=== PATIENT | female | born 1955 | race Two or more races ===

== ENCOUNTER 2018-10-31 10:53 | Day surgery (SDC) | payer OTHER ==
[~2018-10-31] VITALS: Ht 157.5 cm; Wt 58.1 kg
[~2018-10-31 10:53] MED LIST: ACET500 PO; ACETAMINOPHEN500 MG PO; ASCO500 PO; CALCIT950 PO; CALCIUM + D3 E1 EACH PO; CEPH500 PO; CODACE30 PO; Calcarb 600 W-1 EACH PO; Estradiol0.5 MG PO; FERR325 PO; FURO20 PO; Ferrous Sulfat325 M2 PO; HYDACE5 PO; LISHYD1012 PO; LISI20 PO; LOVENOX; OMEP20ER PO; OMEPRAZOLE MAGN20 MG PO; Omeprazole20 M1 PO; POTA20PAC PO; POTCHL20ER PO; PRAVASTATIN SOD10 MG PO; SERT25 PO; TRAZ50 PO; WARF1 PO; WARF4; WARF4 PO; WARF5 PO; WARF6 PO; ZESTORETIC 20-121 EA PO
[2018-10-31] MEDS ORDERED: ENOX30I (12:00)
--- NOTE | 2018-10-31 13:43 | NUR ---
10/31/18 1343 Megan Ferguson NOTIFIED THAT PT.'S LAST DOSE OF LOVENOX WAS 10/30/18 AT 1800. TALKING WITH PT. AT THIS TIME. PER WILL CONTINUE WITH PROCEDURE.
--- NOTE | 2018-10-31 14:21 | NUR ---
10/31/18 1421 Megan Ferguson PT. SUCTIONED OFF & ON DURING PROCEDURE, ORALLY FOR SCANT AMT. CLEAR SECRETIONS. CHIN LIFT ALSO PERFORMED WHEN COUGHING.
--- NOTE | 2018-10-31 14:26 | NUR ---
10/31/18 1426 Megan Ferguson PT. INSTRUCTED PER DR. BAI TO CALL DR. CUMMINGS OFFICE ON LOVENOX DOSES. PER DR. BAI OK TO START COUMADIN TODAY.
== END 2018-10-31 14:31 | disposition home or self-care (01) ==
LOC: ORSCSDS 10:53
PROVIDERS: Internal Medicine Gastroenterology
PROC: 0DJ08ZZ Inspection of Upper Intestinal Tract, Via Natural or Artificial Opening Endoscopic (ICD-10-PCS; principal; 2018-10-31 13:00)
DX: K31.7 Polyp of stomach and duodenum (principal); K44.9 Diaphragmatic hernia without obstruction or gangrene; I10 Essential (primary) hypertension; Z87.891 Personal history of nicotine dependence; Z79.01 Long term (current) use of anticoagulants; Z79.899 Other long term (current) drug therapy
CPT/HCPCS: J2704; J7120

== ENCOUNTER 2019-04-22 10:58 | Emergency (ER) | payer OTHER ==
[~2019-04-22] VITALS: Ht 160 cm; Wt 59.0 kg
[~2019-04-22 10:58] MED LIST changes: +ENOX30I
[2019-04-22] MEDS ORDERED: Lasix20 MG PO (11:46)
[2019-04-22 11:49] LABS: BASOPHILS ABSOLUTE AUTO 0.02 K/mm3 (0.00-0.23); BASOPHILS PERCENT AUTO 0 % (0-2); EOSINOPHILS ABSOLUTE AUTO 0.09 K/mm3 (0.00-0.68); EOSINOPHILS PERCENT AUTO 1 % (0-6); Hematocrit 37.3 % (33.0-51.0); Hemoglobin 11.7 g/dL (11.5-16.0); IMMATURE GRAN ABSOLUTE AUTO 0.02 K/mm3 (0.00-0.10); IMMATURE GRAN PERCENT AUTO 0 % (0-1); LYMPHOCYTES ABSOLUTE AUTO 0.98 K/mm3 (0.84-5.20); LYMPHOCYTES PERCENT AUTO 15 % (21-46); MONOCYTES PERCENT AUTO 6 % (4-13); Mean Corpuscular HGB 28.1 pg (26.0-34.0); Mean Corpuscular HGB Conc 31.4 g/dL (31.5-36.5); Mean Corpuscular Volume 90 fL (80-100); Mean Platelet Volume 10.2 fL (9.1-12.4); NEUTROPHILS ABSOLUTE AUTO 5.08 K/mm3 (1.96-9.15); NEUTROPHILS PERCENT AUTO 77 % (41-73); Platelet Count 206 K/mm3 (150-400); RDW Coefficient Variation 14.8 % (11.7-14.2); RDW Standard Deviation 48.8 fL (35.1-46.3); Red Blood Cell Count 4.16 M/mm3 (3.80-5.20); White Blood Cell Count 6.59 K/mm3 (4.00-11.30)
[2019-04-22 12:03] LABS: Alanine Aminotransfer (ALT/SGP 23 U/L (12-78); Albumin, Blood 4.1 g/dL (3.4-5.0); Albumin/Globulin Ratio 1.2 (0.8-1.8); Alk Phos 84 U/L (50-136); Anion Gap 4 mmol/L (6-16); Aspartate Aminotrans (AST/SGOT 27 U/L (12-37); Bilirubin, Total 0.9 mg/dL (0.1-1.0); Blood Urea Nitrogen 32 mg/dL (8-24); Bun/Creatinine Ratio 34.3 (12.0-20.0); CO2, Blood 32 mmol/L (21-32); Chloride, Blood 105 mmol/L (98-108); Creatinine, Blood 0.93 mg/dL (0.40-1.00); Globulin, Blood 3.3 g/dL (2.2-4.0); Glomerular Filtration Rate >60 (60-); Glucose, Blood 85 mg/dL (70-99); International Normalized Ratio 3.74; Potassium, Blood 3.7 mmol/L (3.5-5.5); Prothrombin Time Results 35.2 Sec (9.7-11.5); Sodium, Blood 141 mmol/L (136-145); Total Protein, Blood 7.4 g/dL (6.4-8.2); Troponin I <0.015 ng/mL (0.000-0.040)
== END 2019-04-22 13:45 | disposition home or self-care (01) ==
LOC: ER 10:58
PROVIDERS: Emergency Medicine
DX: F41.9 Anxiety disorder, unspecified (principal); F43.9 Reaction to severe stress, unspecified; R07.89 Other chest pain; I10 Essential (primary) hypertension; Z79.899 Other long term (current) drug therapy; Z79.01 Long term (current) use of anticoagulants
CPT/HCPCS: 36415; 71046; 80053; 83880; 84484; 85025; 85610; 93005; 93010; 96374; 99285-25; J2060

== ENCOUNTER → 2019-11-13 | Outpatient (CLI) | payer OTHER ==
[~2019-11-13] MED LIST changes: +Lasix20 MG PO
[2019-11-13 19:20] LABS: International Normalized Ratio 2.74; Prothrombin Time Results 27.7 Sec (9.7-11.5)
== END | disposition home or self-care (01) ==
LOC: LAB EV 15:34 → LAB SHORT 15:34
PROVIDERS: Physician Assistant
DX: I35.9 Nonrheumatic aortic valve disorder, unspecified (principal)
CPT/HCPCS: 36415; 85610

== ENCOUNTER 2020-03-11 09:29 | Day surgery (SDC) | payer OTHER ==
[~2020-03-11] VITALS: Ht 154.9 cm; Wt 62.3 kg
[~2020-03-11 09:29] MED LIST changes: +Coumadin2 MG; -WARF6 PO
--- NOTE | 2020-03-11 15:00 | NUR ---
ALL AIR REMOVED FROM THE TR BAND. BAND REMAINS IN PLACE. NO BLEEDING NOTED. DAUGHTER AT THE BEDSIDE. EXTENSIVE TEACHING DONE WITH PATIENT AND FAMILY REGARDING TODAYS TEST RESULTS AND FINDINGS AND THE PLAN OF CARE MOVING FORWARD.
--- NOTE | 2020-03-11 15:20 | NUR ---
1520 PATIENT UP AND DRESSED WITH ASSISTANCE FROM DAUGHTER. VVS. NO BLEEDING NOTED FROM THE TR BAND. PATIENT DENIES DIZZINESS OR PAIN. REVIEWED ALL DISCHARGE INSTRUCTIONS INCLUDING RESUMING WARFARIN PO ON HOME SCHEDULE. PATIENT AGREES AND WILL FOLLOW UP WITH DR. LOPEZ ON @ 1300.
--- NOTE | 2020-03-11 15:38 | NUR ---
1530 PIV REMOVED AND CATHETER TIP INTACT. PRESSURE DRESSING APPLIED. TR BAND REMOVED AND SITE CLEANED OF DRIED BLOOD. CLOTH DOT PLACED AND REPLACED THE WHITE ARM BOARD TO ENCOURAGE PATIENT NOT TO USE THE RIGHT WRIST FOR THE NEXT 48 HOURS. DISCHARGE INSTRUCTIONS AND ALL BELONGINGS RETAINED BY PATIENT. PATIENT AMBULATORY WITH DAUGHTER TO DISCHARGE HOME.
== END 2020-03-11 15:15 | disposition home or self-care (01) ==
LOC: MHTC 09:29
PROC: 4A023N7 Measurement of Cardiac Sampling and Pressure, Left Heart, Percutaneous Approach (ICD-10-PCS; principal; 2020-03-11)
PROC: B201YZZ Plain Radiography of Multiple Coronary Arteries using Other Contrast (ICD-10-PCS; principal; 2020-03-11)
DX: I08.1 Rheumatic disorders of both mitral and tricuspid valves (principal); I25.10 Atherosclerotic heart disease of native coronary artery without angina pectoris; I11.9 Hypertensive heart disease without heart failure; D64.9 Anemia, unspecified; I47.1 Supraventricular tachycardia; I47.2 Ventricular tachycardia; E78.5 Hyperlipidemia, unspecified; I42.9 Cardiomyopathy, unspecified; Z95.2 Presence of prosthetic heart valve; Z79.899 Other long term (current) drug therapy; Z87.891 Personal history of nicotine dependence; Z88.6 Allergy status to analgesic agent
CPT/HCPCS: 93005; 93010; 93456; 99152; 99153; A9270; C1769; C1894; J1644; J2250; J3010; J7030; J7050; Q9967

== ENCOUNTER → 2020-05-24 | Outpatient (CLI) | payer OTHER | END | disposition home or self-care (01) | LOC: LAB 13:16 → LAB SHORT 13:16 | DX: Z01.812 Encounter for preprocedural laboratory examination (principal); Z20.828 Contact with and (suspected) exposure to other viral communicable diseases | CPT/HCPCS: U0003 ==

== ENCOUNTER 2020-10-13 10:36 | Emergency (ER) | payer MEDICARE, OTHER ==
[~2020-10-13] VITALS: Ht 167.6 cm; Wt 59.4 kg
[~2020-10-13 10:36] MED LIST changes: -LISI20 PO; +LISI5 PO
[2020-10-13 11:24] LABS: BASOPHILS ABSOLUTE AUTO 0.06 K/mm3 (0.00-0.23); BASOPHILS PERCENT AUTO 1 % (0-2); EOSINOPHILS PERCENT AUTO 1 % (0-6); Hematocrit 34.7 % (33.0-51.0); Hemoglobin 10.1 g/dL (11.5-16.0); IMMATURE GRAN ABSOLUTE AUTO 0.03 K/mm3 (0.00-0.10); IMMATURE GRAN PERCENT AUTO 0 % (0-1); LYMPHOCYTES ABSOLUTE AUTO 0.78 K/mm3 (0.84-5.20); LYMPHOCYTES PERCENT AUTO 9 % (21-46); MONOCYTES ABSOLUTE AUTO 0.73 K/mm3 (0.16-1.47); MONOCYTES PERCENT AUTO 9 % (4-13); Mean Corpuscular HGB 20.9 pg (26.0-34.0); Mean Corpuscular HGB Conc 29.1 g/dL (31.5-36.5); Mean Corpuscular Volume 72 fL (80-100); NEUTROPHILS ABSOLUTE AUTO 6.64 K/mm3 (1.96-9.15); NEUTROPHILS PERCENT AUTO 80 % (41-73); Platelet Count 174 K/mm3 (150-400); RDW Coefficient Variation 19.3 % (11.7-14.2); Red Blood Cell Count 4.84 M/mm3 (3.80-5.20); White Blood Cell Count 8.34 K/mm3 (4.00-11.30)
[2020-10-13] MEDS ORDERED: ASPI81CH PO (11:28)
[2020-10-13] MEDS ORDERED: TORSE20 PO (11:29)
[2020-10-13] MEDS ORDERED: Norco 5-325 Ta1 EACH PO (11:30)
[2020-10-13] MEDS ORDERED: METO50ER PO (11:31)
[2020-10-13 11:40] LABS: Albumin, Blood 3.5 g/dL (3.4-5.0); Albumin/Globulin Ratio 1.1 (0.8-1.8); Bun/Creatinine Ratio 20.6 (12.0-20.0); Calcium, Blood 8.7 mg/dL (8.5-10.1); Creatinine, Blood 1.07 mg/dL (0.40-1.00); Globulin, Blood 3.2 g/dL (2.2-4.0); Potassium, Blood 3.5 mmol/L (3.5-5.5); Total Protein, Blood 6.7 g/dL (6.4-8.2); Troponin I 0.019 ng/mL (0.000-0.040)
== END 2020-10-13 14:08 | disposition home or self-care (01) ==
LOC: ER 10:36
PROVIDERS: Emergency Medicine
DX: R20.2 Paresthesia of skin (principal); D53.9 Nutritional anemia, unspecified; I10 Essential (primary) hypertension; Z95.1 Presence of aortocoronary bypass graft; Z79.82 Long term (current) use of aspirin; Z88.6 Allergy status to analgesic agent; Z79.01 Long term (current) use of anticoagulants; Z79.899 Other long term (current) drug therapy; Z79.3 Long term (current) use of hormonal contraceptives
CPT/HCPCS: 36415; 70450; 80053; 84484; 85025; 93005; 93010; 99284-25

== ENCOUNTER 2021-07-14 12:15 | Inpatient (IN) | payer MEDICARE, OTHER ==
[~2021-07-14] VITALS: Ht 157.5 cm; Wt 48.3 kg
[~2021-07-14 12:15] MED LIST changes: +ASPI81CH PO; -Coumadin2 MG; +Coumadin2 MG PO; +METO50ER PO; +Norco 5-325 Ta1 EACH PO; +TORSE20 PO
[2021-07-14 12:51] LABS: BASOPHILS ABSOLUTE AUTO 0.03 K/mm3 (0.00-0.23); BASOPHILS PERCENT AUTO 0 % (0-2); EOSINOPHILS ABSOLUTE AUTO 0.12 K/mm3 (0.00-0.68); EOSINOPHILS PERCENT AUTO 2 % (0-6); IMMATURE GRAN ABSOLUTE AUTO 0.02 K/mm3 (0.00-0.10); IMMATURE GRAN PERCENT AUTO 0 % (0-1); LYMPHOCYTES ABSOLUTE AUTO 0.96 K/mm3 (0.84-5.20); LYMPHOCYTES PERCENT AUTO 14 % (21-46); MONOCYTES PERCENT AUTO 7 % (4-13); Mean Corpuscular HGB 27.8 pg (26.0-34.0); Mean Corpuscular Volume 87 fL (80-100); Mean Platelet Volume 11.8 fL (9.1-12.4); NEUTROPHILS ABSOLUTE AUTO 5.24 K/mm3 (1.96-9.15); NEUTROPHILS PERCENT AUTO 76 % (41-73); Platelet Count 80 K/mm3 (150-400); RDW Coefficient Variation 16.2 % (11.7-14.2); RDW Standard Deviation 50.7 fL (35.1-46.3); Red Blood Cell Count 5.76 M/mm3 (3.80-5.20); White Blood Cell Count 6.87 K/mm3 (4.00-11.30)
[2021-07-14 13:14] LABS: Magnesium, Blood 2.6 mg/dL (1.6-2.4)
[2021-07-14 13:15] LABS: Source, Urine Clean Catch
[2021-07-14 13:21] LABS: Albumin, Blood 4.5 g/dL (3.4-5.0); Bilirubin, Total 1.8 mg/dL (0.1-1.0); Bun/Creatinine Ratio 37.5 (12.0-20.0); Calcium, Blood 10.1 mg/dL (8.5-10.1); Creatinine, Blood 2.96 mg/dL (0.40-1.00); Globulin, Blood 4.5 g/dL (2.2-4.0); Phosphorus, Blood 4.8 mg/dL (2.5-4.9); Potassium, Blood 6.6 mmol/L (3.5-5.5)
[2021-07-14 13:30] LABS: Appearance, Urine Clear (Clear); Bilirubin, Urine Neg (Neg); Blood, Urine Neg (Neg); Glucose Qualitative, Urine Neg (Neg); Ketones, Urine Neg (Neg); Leukocyte Esterase, Urine Neg (Neg); Nitrite, Urine Neg (Neg); Protein, Urine Neg (Neg); Urobilinogen, Urine NORM (Normal)
[2021-07-14 13:49] LABS: Color, Urine Pale Yellow (P-Yellow)
[2021-07-14 14:45] LABS: Influenza A, PCR NEGATIVE (NEGATIVE); Influenza B, PCR NEGATIVE (NEGATIVE); Resp Syncytial Virus, PCR NEGATIVE (NEGATIVE); SARS-Cov-2 (COVID-19) PCR, MMC NEGATIVE (NEGATIVE)
[2021-07-14] MEDS ORDERED: FEROSUL325 M1 PO (15:10)
[2021-07-14] MEDS ORDERED: Norco 5-325 MG PO (15:11)
[2021-07-14] MEDS ORDERED: ZESTRIL40 M1 PO (15:13)
[2021-07-14] MEDS ORDERED: METO50ER PO (15:14)
[2021-07-14] MEDS ORDERED: OMEP20ER PO (15:15)
[2021-07-14] MEDS ORDERED: K-Dur20 MEQ PO (15:16)
[2021-07-14] MEDS ORDERED: SERT25 PO (15:17)
[2021-07-14] MEDS ORDERED: ALDACTONE25 MG PO (15:18)
[2021-07-14] MEDS ORDERED: TORS10 PO (15:19)
[2021-07-14] MEDS ORDERED: TRAZ50 PO (15:21)
[2021-07-14] MEDS ORDERED: Coumadin1 MG PO (15:22)
[2021-07-14 15:28] LABS: Albumin, Blood 4.1 g/dL (3.4-5.0); Anion Gap 8 mmol/L (6-16); Blood Urea Nitrogen 101 mg/dL (8-24); Bun/Creatinine Ratio 37.5 (12.0-20.0); CO2, Blood 20 mmol/L (21-32); Chloride, Blood 110 mmol/L (98-108); Creatinine, Blood 2.69 mg/dL (0.40-1.00); Glomerular Filtration Rate 18 (60-); Glucose, Blood 42 mg/dL (70-99); Potassium, Blood 5.5 mmol/L (3.5-5.5); Sodium, Blood 138 mmol/L (136-145)
[2021-07-14 17:12] LABS: Prothrombin Time Results 72.3 Sec (9.7-11.5)
[2021-07-14 17:16] LABS: International Normalized Ratio 7.88
[2021-07-14] MEDS ORDERED: OLME20 PO (20:51)
[2021-07-14 21:00] LABS: Albumin, Blood 3.9 g/dL (3.4-5.0); Anion Gap 10 mmol/L (6-16); Blood Urea Nitrogen 94 mg/dL (8-24); CO2, Blood 22 mmol/L (21-32); Calcium, Blood 9.5 mg/dL (8.5-10.1); Chloride, Blood 104 mmol/L (98-108); Creatinine, Blood 2.41 mg/dL (0.40-1.00); Glomerular Filtration Rate 20 (60-); Glucose, Blood 295 mg/dL (70-99); Phosphorus, Blood 3.9 mg/dL (2.5-4.9); Potassium, Blood 4.9 mmol/L (3.5-5.5); Sodium, Blood 136 mmol/L (136-145)
[2021-07-15 04:11] LABS: BASOPHILS ABSOLUTE AUTO 0.02 K/mm3 (0.00-0.23); BASOPHILS PERCENT AUTO 0 % (0-2); EOSINOPHILS ABSOLUTE AUTO 0.11 K/mm3 (0.00-0.68); EOSINOPHILS PERCENT AUTO 2 % (0-6); Hematocrit 43.4 % (33.0-51.0); Hemoglobin 13.9 g/dL (11.5-16.0); IMMATURE GRAN ABSOLUTE AUTO 0.01 K/mm3 (0.00-0.10); IMMATURE GRAN PERCENT AUTO 0 % (0-1); LYMPHOCYTES ABSOLUTE AUTO 0.88 K/mm3 (0.84-5.20); LYMPHOCYTES PERCENT AUTO 15 % (21-46); MONOCYTES ABSOLUTE AUTO 0.53 K/mm3 (0.16-1.47); MONOCYTES PERCENT AUTO 9 % (4-13); Mean Corpuscular HGB 27.3 pg (26.0-34.0); Mean Corpuscular Volume 85 fL (80-100); Mean Platelet Volume 12.1 fL (9.1-12.4); NEUTROPHILS PERCENT AUTO 74 % (41-73); Platelet Count 66 K/mm3 (150-400); RDW Standard Deviation 50.1 fL (35.1-46.3); Red Blood Cell Count 5.09 M/mm3 (3.80-5.20); White Blood Cell Count 5.85 K/mm3 (4.00-11.30)
[2021-07-15 04:30] LABS: Prothrombin Time Results 72.5 Sec (9.7-11.5)
[2021-07-15 04:34] LABS: International Normalized Ratio 7.9
[2021-07-15 04:42] LABS: Albumin, Blood 3.7 g/dL (3.4-5.0); Albumin/Globulin Ratio 1.1 (0.8-1.8); Bilirubin, Total 1.7 mg/dL (0.1-1.0); Bun/Creatinine Ratio 38.6 (12.0-20.0); Calcium, Blood 9.4 mg/dL (8.5-10.1); Creatinine, Blood 2.1 mg/dL (0.40-1.00); Globulin, Blood 3.4 g/dL (2.2-4.0); Potassium, Blood 5.7 mmol/L (3.5-5.5); Total Protein, Blood 7.1 g/dL (6.4-8.2)
--- NOTE | 2021-07-15 06:39 | NUR ---
SHIFT SUMMARY PT A&OX4, BUE TREMORS AT BASELINE FOR X1 MONTH. SP02>90% ON RA. TELEMETRY READS NSR 1ST DEGREE HB HR 60'S. PT USED SBA AND FWW TO BATHROOM TO VOID, NO BM THIS SHIFT. PT C/O OF MIGRAINE HEADACHE, NORCO GIVEN PER EMAR. HEATING PAD PROVIDED. PT DAUGHTER ACCOMPANIED HER TO ROOM UPON ADMIT. TALKED TO PT ABOUT ADVANCED CARE PLANNING. PT AND DAUGHTER HOPING PALLIATIVE CAN MEET THEM TODAY DURING VISITING HOURS TO DISCUSS MAKING ONE. FLUIDS INFUSING PER EMAR. CALL LIGHT IN REACH.
--- NOTE | 2021-07-15 11:49 | NUR ---
Pt is A&O, pleasant with cares. VSS on RA. BP has been better this AM, PO metoprolol given per orders. Pt was nauseous at start of shift from migraine, prn zofran, norco and zoloft given. Pt reported she takes zoloft to help prevent migraines. Headache relieved after AM meds. Pt up to bathroom, still no BM at this time. IV fluids running the second bag of NS ordered at 50ml/hr.
--- NOTE | 2021-07-15 13:19 | NUR ---
Patient is lying in bed and alert. Patient talks about her recent surgery and the medical issues that she has. She tells me that her grandkids ages 9 and 12 are her biggest inspiration and motive for her to recover well. She also shares about her [employer] anita and how this is a strength to her and that her prayers are very comforting to her. I encourage helpful attitudes and practices and provide therapeutic listening, gentle business and financial counsel and prayer. Patient responds well and shows signs of an elevated mood. I will continue to remain available to patient and family.
--- NOTE | 2021-07-15 13:56 | NUR ---
Pt reports 5/10 headache, this is the second today. No pain meds available. Zofran given for nausea and vomiting. LVM for to get more pain meds and notify him that this is the second migraine today.
--- NOTE | 2021-07-15 14:12 | NUR ---
echocardiogram complete
[2021-07-15 14:37] LABS: Albumin, Blood 3.7 g/dL (3.4-5.0); Anion Gap 13 mmol/L (6-16); Blood Urea Nitrogen 57 mg/dL (8-24); Bun/Creatinine Ratio 33.3 (12.0-20.0); CO2, Blood 17 mmol/L (21-32); Calcium, Blood 9.1 mg/dL (8.5-10.1); Chloride, Blood 112 mmol/L (98-108); Creatinine, Blood 1.71 mg/dL (0.40-1.00); Glomerular Filtration Rate 30 (60-); Glucose, Blood 106 mg/dL (70-99); Phosphorus, Blood 4.3 mg/dL (2.5-4.9); Potassium, Blood 5.3 mmol/L (3.5-5.5); Sodium, Blood 142 mmol/L (136-145)
--- NOTE | 2021-07-15 14:51 | NUR ---
Radiologist called reporting pt does have new subdermal hemorrage. Dr. oJsé was notifed via telephone and will be adding in new orders. Pt was oriented x4 prior to head CT. I have given her morphine 2mg and phenergan for nausea and headache which has made her a bit drowsy. Pupils were equal and reactive on assessment. Daughter is at bedside and pt is resting comfortably. VSS on RA. Cardiac and continous pulse ox on.
--- NOTE | 2021-07-15 15:56 | NUR ---
Pt is oriented x2 at this time and pretty drowsy, but will wake up to voice. Pt was given phenergan and morphine for pain and nausea, so hard to tell if that is causing some decreased mentation. notifed. VSS on RA.
--- NOTE | 2021-07-15 16:21 | NUR ---
I attempted to visit this patient in her room earlier and nurse was taking vitals as well as RT waiting to assess the patient
[2021-07-15 16:40] LABS: International Normalized Ratio 1.53; Prothrombin Time Results 15.6 Sec (9.7-11.5)
--- NOTE | 2021-07-15 18:36 | NUR ---
Shift summary: Pt was alert and orientedx4 at start of shift, she is now orientedx3. In AM she complained of headache/migraine with nausea and vomiting, prn norco, zoloft, and zofran given with good relief. Around about 1330 pt reported sudden onset severe headache with nausea and vomiting again, MD notifed and prn zofran given. STAT CT head ordered due to bleeding risk with INR of 7.9 this AM. IV mophine and prn phenergan given since the 2nd dose of zofran did not help with nausea. Pt was pretty drowsy after the morphine and phenergan and was only oriented x 2 for a short time and was less alert at that time. By the end of the shift she was more alert and less slurring of words. Pupils remain equal and reactive. Pt did get up to BSC with min assist to void, pt was a bit wobbly when up. No BM today. VSS on RA. Tele: sinus rythmn w/ 1st degree 60s. Kcentra and Vitamin K given shortly after CT results showing new subdural hemorrhage. K: 5.7 this AM and Lokelma given per orders. NS was running at 50ml/hr until new order of 1/2NS running at 100ml/hr.
[2021-07-16 04:17] LABS: BASOPHILS ABSOLUTE AUTO 0.02 K/mm3 (0.00-0.23); BASOPHILS PERCENT AUTO 0 % (0-2); EOSINOPHILS ABSOLUTE AUTO 0.12 K/mm3 (0.00-0.68); EOSINOPHILS PERCENT AUTO 2 % (0-6); Hematocrit 42.2 % (33.0-51.0); Hemoglobin 13.4 g/dL (11.5-16.0); IMMATURE GRAN ABSOLUTE AUTO 0.02 K/mm3 (0.00-0.10); IMMATURE GRAN PERCENT AUTO 0 % (0-1); LYMPHOCYTES ABSOLUTE AUTO 0.93 K/mm3 (0.84-5.20); LYMPHOCYTES PERCENT AUTO 16 % (21-46); MONOCYTES ABSOLUTE AUTO 0.58 K/mm3 (0.16-1.47); MONOCYTES PERCENT AUTO 10 % (4-13); Mean Corpuscular HGB 27.5 pg (26.0-34.0); Mean Corpuscular HGB Conc 31.8 g/dL (31.5-36.5); Mean Corpuscular Volume 87 fL (80-100); Mean Platelet Volume 10.9 fL (9.1-12.4); NEUTROPHILS PERCENT AUTO 72 % (41-73); Platelet Count 70 K/mm3 (150-400); RDW Coefficient Variation 16.1 % (11.7-14.2); RDW Standard Deviation 51.2 fL (35.1-46.3); Red Blood Cell Count 4.88 M/mm3 (3.80-5.20); White Blood Cell Count 5.97 K/mm3 (4.00-11.30)
[2021-07-16 04:19] LABS: International Normalized Ratio 1.21
[2021-07-16 04:25] LABS: Albumin, Blood 3.3 g/dL (3.4-5.0); Bilirubin, Total 3.9 mg/dL (0.1-1.0); Bun/Creatinine Ratio 26.6 (12.0-20.0); Calcium, Blood 9.6 mg/dL (8.5-10.1); Creatinine, Blood 1.43 mg/dL (0.40-1.00); Globulin, Blood 3.4 g/dL (2.2-4.0); Potassium, Blood 4.4 mmol/L (3.5-5.5); Total Protein, Blood 6.7 g/dL (6.4-8.2)
--- NOTE | 2021-07-16 05:44 | NUR ---
SHIFT SUMMARY PT A&OX4. Q2H NEURO CHECKS REMAINED UNCHANGED. PT DROWSY ALL NIGHT, WEAKNESS NOTED. SP02>90% ON RA. TELEMETRY READ NSR, HR 60'S. PT UP TO BSC TO VOID, WITH FWW AND HEAVY 1 PERSON, WEAK ON FEET. NO BM THIS SHIFT. PT DENIED NAUSEA. C/O OF SLIGHT HEADACHE BUT DID NOT WANT MEDICATION. FLUIDS INFUSED PER EMAR. PT SLEPT MOST OF NIGHT BUT AROUSABLE TO SOUND. CALL LIGHT IN REACH.
[2021-07-16 06:39] LABS: Prothrombin Time Results 12.5 Sec (9.7-11.5)
--- NOTE | 2021-07-16 13:00 | NUR ---
PT'S NEURO ASSESSMENT HAS REMAIN UNCHANGED SINCE LAST ASSESSMENT, REPORTS GONZALEZ OF 4/10 WHICH SHE IS TREATED WITH NORCO FOR PAIN.
--- NOTE | 2021-07-16 14:30 | NUR ---
Patient is lying in bed and alert. Patient immediately tells me that she is having horrible head pain and numbness down her arm. She explains that she was recently given "pain meds" and she waiting for them to kick in. She talks about how she focuses of her grandkids, her anita and anything that can distract her thinking off of the pain. I provide additional thoughts for distraction, discuss mindfulness practices and provide prayer. Patient responds well and states that she appreciate the visit and expects the pain to subside very soon. I will continue to remain available to patient and family.
--- NOTE | 2021-07-16 18:07 | NUR ---
PT A/O X3, NEUROS HAVE REMAINED UNCHAGED T/O THE DAY. PT DID REPORT GONZALEZ T/O THE DAY, AT ONE POINT DID REPORT NUMBNESS TO OCCIPUT AND FOREHEAD AND BRIEF VISUAL DISTURBANCE WHICH HAS RESOLVED. PT TREATED FOR PAIN PER EMAR. COUMADIN RESTARTED THIS EVENING. PT WITH ORDER TO ADVANCE DIET TOLERATED BUT HAS ASKED TO REMAIN ON CLEAR LIQUIDS, DIET WAS NOT CHANGED. VSS. DENIES CP AND SOB
[2021-07-17 03:46] LABS: BASOPHILS ABSOLUTE AUTO 0.02 K/mm3 (0.00-0.23); BASOPHILS PERCENT AUTO 0 % (0-2); EOSINOPHILS ABSOLUTE AUTO 0.18 K/mm3 (0.00-0.68); EOSINOPHILS PERCENT AUTO 3 % (0-6); Hematocrit 40.1 % (33.0-51.0); Hemoglobin 12.8 g/dL (11.5-16.0); IMMATURE GRAN ABSOLUTE AUTO 0.01 K/mm3 (0.00-0.10); IMMATURE GRAN PERCENT AUTO 0 % (0-1); LYMPHOCYTES ABSOLUTE AUTO 1.07 K/mm3 (0.84-5.20); LYMPHOCYTES PERCENT AUTO 20 % (21-46); MONOCYTES ABSOLUTE AUTO 0.57 K/mm3 (0.16-1.47); MONOCYTES PERCENT AUTO 10 % (4-13); Mean Corpuscular HGB 27.7 pg (26.0-34.0); Mean Corpuscular HGB Conc 31.9 g/dL (31.5-36.5); Mean Corpuscular Volume 87 fL (80-100); Mean Platelet Volume 10.8 fL (9.1-12.4); NEUTROPHILS ABSOLUTE AUTO 3.64 K/mm3 (1.96-9.15); NEUTROPHILS PERCENT AUTO 66 % (41-73); Platelet Count 66 K/mm3 (150-400); RDW Coefficient Variation 15.6 % (11.7-14.2); RDW Standard Deviation 49.9 fL (35.1-46.3); Red Blood Cell Count 4.62 M/mm3 (3.80-5.20); White Blood Cell Count 5.49 K/mm3 (4.00-11.30)
--- NOTE | 2021-07-17 05:30 | NUR ---
SHIFT SUMMARY PATIENT ALERT AND ORIENTED X3. NEURO CHECKS HAVE REMAINED UNCHANGED T/O SHIFT. PATIENT CONTINUES TO REPORT SOME NUMBNESS IN OCCIPUT AREA BUT STATES THAT IT HAS NOT CHANGED. DENIES ANY VISUAL DISTURBANCES. COMPLAINED OF A HEADACHE ONCE, MEDICATED PER EMAR. VSS. DENIES CHEST PAIN OR SHORTNESS OF BREATH. AMBULATES WITH MINIMAL ASSIST INTO BATHROOM. NO OTHER SIGNIFICANT CHANGES NOTED. WILL REPORT TO DAY SHIFT RN.
[2021-07-17 05:55] LABS: Albumin, Blood 2.8 g/dL (3.4-5.0); Anion Gap 4 mmol/L (6-16); Blood Urea Nitrogen 19 mg/dL (8-24); Bun/Creatinine Ratio 18.3 (12.0-20.0); CO2, Blood 25 mmol/L (21-32); Calcium, Blood 8.8 mg/dL (8.5-10.1); Chloride, Blood 111 mmol/L (98-108); Creatinine, Blood 1.04 mg/dL (0.40-1.00); Glomerular Filtration Rate 53 (60-); Glucose, Blood 88 mg/dL (70-99); Magnesium, Blood 1.8 mg/dL (1.6-2.4); Phosphorus, Blood 2.7 mg/dL (2.5-4.9); Potassium, Blood 4.1 mmol/L (3.5-5.5); Sodium, Blood 140 mmol/L (136-145)
[2021-07-17 07:27] LABS: International Normalized Ratio 1.13; Prothrombin Time Results 11.8 Sec (9.7-11.5)
[2021-07-17 10:24] LABS: Stool Occult Blood Guaiac 1 Pos (Neg)
--- NOTE | 2021-07-17 18:21 | NUR ---
PT WITHOUT NEURO CHANGES T/O THE DAY. STS THAT GONZALEZ HAS RESOLVED. DENIES CP AND SOB. PT HAD BM TODAY BUT FLUSHED IT BEFORE A REPEAT SAMPLE COULD BE OBTAINED. PT REMAINS INDEPENDANT IN ROOM TO BATHROOM. VSS. NADN. THERE ARE NO OTHER ACUTE CHANGES TO DISCUSS THIS SHIFT.
[2021-07-18 03:51] LABS: International Normalized Ratio 1.14; Prothrombin Time Results 11.9 Sec (9.7-11.5)
--- NOTE | 2021-07-18 05:31 | NUR ---
SHIFT SUMMARY PATIENT ALERT AND ORIENTED X3. VSS. PATIENT REMAINS ON RA WITH O2 SATURATION ABOVE 90%. ABLE TO MAKE NEEDS KNOWN TO STAFF AND USES CALL LIGHT APPROPRIATELY. PATIENT ABLE TO HAVE BM OVER NIGHT, STOOL SAMPLE SENT TO LAB. MEDICATED PER EMAR FOR PAIN. NO SIGNIFICANT CHANGES SINCE ADMISSION NOTE. WILL REPORT TO DAY SHIFT RN.
--- NOTE | 2021-07-18 05:36 | NUR ---
SHIFT SUMMARY PATIENT ALERT AND ORIENTED. VSS. PATIENT REMAINS ON RA WITH O2 SATURATION ABOVE 92%. NO NEURO CHANGES NOTED DURING THIS SHIFT. MEDICATED PER EMAR FOR HEADACHE. PATIENT ABLE TO MAKE NEEDS KNOWN AND USES CALL LIGHT APPROPRIATELY. AMBULATES INTO BATHROOM STANDBY ASSIST. NO OTHER SIGNIFICANT CHANGES TO PATIENT THIS SHIFT. WILL REPORT TO DAY SHIFT RN.
[2021-07-18 08:34] LABS: BASOPHILS ABSOLUTE AUTO 0.02 K/mm3 (0.00-0.23); BASOPHILS PERCENT AUTO 0 % (0-2); EOSINOPHILS ABSOLUTE AUTO 0.16 K/mm3 (0.00-0.68); EOSINOPHILS PERCENT AUTO 3 % (0-6); Hematocrit 41.7 % (33.0-51.0); Hemoglobin 13.1 g/dL (11.5-16.0); IMMATURE GRAN ABSOLUTE AUTO 0.01 K/mm3 (0.00-0.10); IMMATURE GRAN PERCENT AUTO 0 % (0-1); LYMPHOCYTES ABSOLUTE AUTO 0.72 K/mm3 (0.84-5.20); LYMPHOCYTES PERCENT AUTO 14 % (21-46); MONOCYTES ABSOLUTE AUTO 0.45 K/mm3 (0.16-1.47); MONOCYTES PERCENT AUTO 9 % (4-13); Mean Corpuscular HGB 27.8 pg (26.0-34.0); Mean Corpuscular HGB Conc 31.4 g/dL (31.5-36.5); Mean Corpuscular Volume 89 fL (80-100); Mean Platelet Volume 11.9 fL (9.1-12.4); NEUTROPHILS ABSOLUTE AUTO 3.78 K/mm3 (1.96-9.15); NEUTROPHILS PERCENT AUTO 74 % (41-73); Platelet Count 68 K/mm3 (150-400); RDW Coefficient Variation 15.1 % (11.7-14.2); RDW Standard Deviation 48.9 fL (35.1-46.3); Red Blood Cell Count 4.71 M/mm3 (3.80-5.20); White Blood Cell Count 5.14 K/mm3 (4.00-11.30)
[2021-07-18 09:02] LABS: Alanine Aminotransfer (ALT/SGP 25 U/L (12-78); Albumin, Blood 3.2 g/dL (3.4-5.0); Albumin/Globulin Ratio 1.1 (0.8-1.8); Alk Phos 142 U/L (50-136); Anion Gap 7 mmol/L (6-16); Aspartate Aminotrans (AST/SGOT 34 U/L (12-37); Bilirubin, Direct 0.8 mg/dL (0.0-0.3); Bilirubin, Indirect 2.4 mg/dL (0.1-0.7); Bilirubin, Total 3.2 mg/dL (0.1-1.0); Blood Urea Nitrogen 10 mg/dL (8-24); CO2, Blood 24 mmol/L (21-32); Calcium, Blood 8.8 mg/dL (8.5-10.1); Chloride, Blood 109 mmol/L (98-108); Creatinine, Blood 0.91 mg/dL (0.40-1.00); Glomerular Filtration Rate >60 (60-); Glucose, Blood 107 mg/dL (70-99); Phosphorus, Blood 2.7 mg/dL (2.5-4.9); Potassium, Blood 3.9 mmol/L (3.5-5.5); Sodium, Blood 140 mmol/L (136-145); Total Protein, Blood 6.2 g/dL (6.4-8.2)
[2021-07-18] MEDS ORDERED: OLME20 PO (12:17)
--- NOTE | 2021-07-18 13:57 | NUR ---
IVs REMOVED INTACT, PRESSURE DRESSED, NO ACTIVE BLEEDING FROM SITE. PT AND FAMILY EXPRESSED UNDERSTANDING OF DC TEACHING AND DENY FURTHER NEEDS
== END 2021-07-18 13:26 | disposition home or self-care (01) | DRG 682 ==
LOC: ER 12:15 → ERHOLD 14:38 → PCU 14:38
PROVIDERS: Emergency Medicine; Internal Medicine Endocrinology, Diabetes & Metabolism; Physician Assistant; ADMIT Family Medicine
DX: N17.9 Acute kidney failure, unspecified (principal); I62.00 Nontraumatic subdural hemorrhage, unspecified; E87.2 Acidosis; K21.9 Gastro-esophageal reflux disease without esophagitis; J44.9 Chronic obstructive pulmonary disease, unspecified; E03.9 Hypothyroidism, unspecified; Z79.01 Long term (current) use of anticoagulants; F32.A Depression, unspecified; Z20.822 Contact with and (suspected) exposure to COVID-19; R11.2 Nausea with vomiting, unspecified; R19.7 Diarrhea, unspecified; Z95.2 Presence of prosthetic heart valve; D50.9 Iron deficiency anemia, unspecified; E87.5 Hyperkalemia; G43.909 Migraine, unspecified, not intractable, without status migrainosus; Z88.6 Allergy status to analgesic agent; M81.0 Age-related osteoporosis without current pathological fracture; Z90.710 Acquired absence of both cervix and uterus; B18.2 Chronic viral hepatitis C; Z66 Do not resuscitate; Z79.899 Other long term (current) drug therapy; R94.5 Abnormal results of liver function studies; D69.6 Thrombocytopenia, unspecified; Z79.82 Long term (current) use of aspirin; Z95.1 Presence of aortocoronary bypass graft; E86.0 Dehydration; Z53.29 Procedure and treatment not carried out because of patient's decision for other reasons
CPT/HCPCS: 0241U; 36415; 36416; 70450; 80053; 80069; 81003; 82248; 82272; 82947; 83735; 83880; 84100; 85025; 85610; 87015; 87045; 87046; 87205; 87899; 93005; 93010; 93306; 94644; 96365; 96366; 96375; 96376; 99285-25; A9270; C9113; J0610; J1815; J2270; J2405; J2550; J3430; J7030; J7168

== ENCOUNTER → 2021-10-07 | Outpatient (CLI) | payer MEDICARE, OTHER ==
[~2021-10-07] MED LIST changes: +ALDACTONE25 MG PO; +Coumadin1 MG PO; +FEROSUL325 M1 PO; +K-Dur20 MEQ PO; +Norco 5-325 MG PO; +OLME20 PO; +TORS10 PO; +ZESTRIL40 M1 PO
[2021-10-07 14:23] LABS: Creatinine Urine 60.2 mg/dL (27.00-270.00); Protein, Urine Quantitative 8.6 mg/dL (0.0-11.9)
[2021-10-07 14:26] LABS: Microalbumin, Urine Quant. 7.87 mg/L (0.000-20.000)
== END | disposition home or self-care (01) ==
LOC: LAB SHORT 12:59
PROVIDERS: Internal Medicine Nephrology
DX: N18.30 Chronic kidney disease, stage 3 unspecified (principal); D63.1 Anemia in chronic kidney disease; E55.9 Vitamin D deficiency, unspecified; N25.81 Secondary hyperparathyroidism of renal origin; E78.00 Pure hypercholesterolemia, unspecified; R76.9 Abnormal immunological finding in serum, unspecified; R94.5 Abnormal results of liver function studies; R94.6 Abnormal results of thyroid function studies; D51.8 Other vitamin B12 deficiency anemias; D52.8 Other folate deficiency anemias; D50.9 Iron deficiency anemia, unspecified
CPT/HCPCS: 81050; 82043; 82570; 84156

== ENCOUNTER 2022-07-21 10:12 | Inpatient (IN) | payer OTHER ==
[~2022-07-21] VITALS: Ht 157.5 cm; Wt 53.7 kg
[~2022-07-21 10:12] MED LIST changes: -Coumadin2 MG PO; +ESTRADIOL0.5 MG PO; -Estradiol0.5 MG PO
[2022-07-21 11:03] LABS: BASOPHILS ABSOLUTE AUTO 0.02 K/mm3 (0.00-0.23); BASOPHILS PERCENT AUTO 0 % (0-2); EOSINOPHILS ABSOLUTE AUTO 0.12 K/mm3 (0.00-0.68); EOSINOPHILS PERCENT AUTO 2 % (0-6); Hematocrit 44.3 % (33.0-51.0); Hemoglobin 14.2 g/dL (11.5-16.0); IMMATURE GRAN ABSOLUTE AUTO 0.03 K/mm3 (0.00-0.10); IMMATURE GRAN PERCENT AUTO 1 % (0-1); LYMPHOCYTES ABSOLUTE AUTO 0.84 K/mm3 (0.84-5.20); LYMPHOCYTES PERCENT AUTO 13 % (21-46); MONOCYTES ABSOLUTE AUTO 0.44 K/mm3 (0.16-1.47); MONOCYTES PERCENT AUTO 7 % (4-13); Mean Corpuscular HGB Conc 32.1 g/dL (31.5-36.5); Mean Corpuscular Volume 87 fL (80-100); Mean Platelet Volume 12.5 fL (9.1-12.4); NEUTROPHILS ABSOLUTE AUTO 4.81 K/mm3 (1.96-9.15); NEUTROPHILS PERCENT AUTO 77 % (41-73); Platelet Count 110 K/mm3 (150-400); RDW Coefficient Variation 16.6 % (11.7-14.2); RDW Standard Deviation 52.7 fL (35.1-46.3); Red Blood Cell Count 5.07 M/mm3 (3.80-5.20); White Blood Cell Count 6.26 K/mm3 (4.00-11.30)
[2022-07-21 11:23] LABS: Albumin, Blood 4.5 g/dL (3.4-5.0); Bilirubin, Total 1.4 mg/dL (0.1-1.0); Bun/Creatinine Ratio 24.4 (12.0-20.0); Calcium, Blood 10.1 mg/dL (8.5-10.1); Creatinine, Blood 5.74 mg/dL (0.40-1.00); Globulin, Blood 4.5 g/dL (2.2-4.0)
[2022-07-21 11:24] LABS: Potassium, Blood 7.3 mmol/L (3.5-5.5)
[2022-07-21] MEDS ORDERED: GABA100 PO (12:49)
[2022-07-21] MEDS ORDERED: POTCHL20ER PO (12:53)
[2022-07-21] MEDS ORDERED: SPIR25 PO (12:55)
[2022-07-21] MEDS ORDERED: TORSE20 PO (13:05)
[2022-07-21 14:10] LABS: Calcium, Ionized (POC) 1.23 mmol/L (1.10-1.46); Chloride (POC) 101 mmol/L (98-108); Creatinine (POC) 5.6 mg/dL (0.6-1.0); Glucose (ISTAT POC) 117 mg/dL (70-99); Hemoglobin (POC) 13.6 g/dL (12.0-16.0); Sodium (POC) 136 mmol/L (135-148); Total CO2 (POC) 25 mmol/L (21-32)
[2022-07-21 15:07] LABS: Bun/Creatinine Ratio 26.4 (12.0-20.0); Calcium, Blood 9.9 mg/dL (8.5-10.1)
[2022-07-22 05:52] LABS: BASOPHILS ABSOLUTE AUTO 0.02 K/mm3 (0.00-0.23); BASOPHILS PERCENT AUTO 0 % (0-2); EOSINOPHILS ABSOLUTE AUTO 0.08 K/mm3 (0.00-0.68); EOSINOPHILS PERCENT AUTO 2 % (0-6); Hematocrit 36.5 % (33.0-51.0); Hemoglobin 12.1 g/dL (11.5-16.0); IMMATURE GRAN ABSOLUTE AUTO 0.01 K/mm3 (0.00-0.10); IMMATURE GRAN PERCENT AUTO 0 % (0-1); LYMPHOCYTES ABSOLUTE AUTO 1.02 K/mm3 (0.84-5.20); LYMPHOCYTES PERCENT AUTO 21 % (21-46); MONOCYTES ABSOLUTE AUTO 0.43 K/mm3 (0.16-1.47); MONOCYTES PERCENT AUTO 9 % (4-13); Mean Corpuscular HGB 28.3 pg (26.0-34.0); Mean Corpuscular HGB Conc 33.2 g/dL (31.5-36.5); Mean Corpuscular Volume 86 fL (80-100); Mean Platelet Volume 11.8 fL (9.1-12.4); NEUTROPHILS ABSOLUTE AUTO 3.31 K/mm3 (1.96-9.15); NEUTROPHILS PERCENT AUTO 68 % (41-73); Platelet Count 78 K/mm3 (150-400); RDW Coefficient Variation 16.3 % (11.7-14.2); RDW Standard Deviation 51.8 fL (35.1-46.3); Red Blood Cell Count 4.27 M/mm3 (3.80-5.20); White Blood Cell Count 4.87 K/mm3 (4.00-11.30)
[2022-07-22 06:01] LABS: Prothrombin Time Results 38.4 Sec (9.7-11.5)
[2022-07-22 06:16] LABS: Magnesium, Blood 2.4 mg/dL (1.6-2.4)
[2022-07-22 06:45] LABS: Albumin, Blood 3.5 g/dL (3.4-5.0); Albumin/Globulin Ratio 1.1 (0.8-1.8); Bilirubin, Total 1.5 mg/dL (0.1-1.0); Bun/Creatinine Ratio 27.3 (12.0-20.0); Calcium, Blood 8.9 mg/dL (8.5-10.1); Creatinine, Blood 4.72 mg/dL (0.40-1.00); Globulin, Blood 3.2 g/dL (2.2-4.0); Phosphorus, Blood 4.7 mg/dL (2.5-4.9); Potassium, Blood 6.6 mmol/L (3.5-5.5); Total Protein, Blood 6.7 g/dL (6.4-8.2)
--- NOTE | 2022-07-22 06:48 | NUR ---
GROCERY STORE BAGGER SUMMARY: A&Ox3-4. PLEASANT AND COOPERATIVE WITH CARE. CALLS APPROPRIATELY AND IS ABLE TO COMMUNICATE NEEDS EFFECTIVELY. DR PENA CONSULTED THIS EVENING AND ORDERED BLADDER SCAN WITH POST-VOID OUTPUT COMPARISON WELL FLUIDS AND WILL RETURN IN AM TO CHECK IN WITH HER. SCAN SHOWED ~260mL AND PT VOIED 300mL. PT DENIES C/O PAIN OR DISCOMFORT THIS EVENING AND HAS SLEPT THE MAJORITY OF SHIFT. CRITICAL VALUE OF 6.6 POTASSIUM RECEIVED FROM LAB @ 0645am. WILL DISCUSS WITH DR PENA WHEN HE CONSULTS. WILL REPORT TO ONCOMING RN.
--- NOTE | 2022-07-22 11:36 | NUR ---
CALLED DR PENA WITH LAB RESULTS- POTASSIUM 4.8 HE IS AWARE. BG HAVE BEEN TRENDING DOWN. RECIEVED AN ORDER TO DC BG CHECKS.
--- NOTE | 2022-07-22 16:49 | NUR ---
SHIFT SUMMARY- PT ALERT AND ORIENTED. FAMILY AT THE BEDSIDE. POTASSIUM WAS CRITICALLY HIGH THIS MORNING AT 6.6 DR PENA WAS NOTIFIED BY NIGHT RN AND MEDS WERE GIVEN. POTASSIUM DOWN TO 4.8 ON RECHECK. ON MORNING ASSESSMENT IT WAS NOTED THE PT HAD A LINE OF CLOTTED BLOOD IN THE BACK OF HER THROAT. PT HAD A COUGHING FIT AND COUGHED UP A BLOOD CLOT THE SIZE OF A DIME AND THE CLOTTED BLOOD WAS LESSENED, THE PT STATES SHE HAD A BAD NOSE BLEED WHEN SHE CAME IN TO THE ED. FAMILY SUPPORTS THIS CLAIM. WILL TALK TO DR PENA ABOUT THIS WHEN HE COMES IN TO SEE THE PT THIS EVENING, CALLED DR CEBALLOS HE IS AWARE OF THIS. VS STABLE. PT IS IN BED, CALL LIGHT IN REACH, SHE WALKED THE HALLS WITH THERAPY TODAY. PT PERSONAL 4 WHEELED WALKER IS IN THE ROOM. PT HAS BEEN UP INDEPENDENT TO THE BATHROOM TODAY. WILL CTM AND PASS ON TO NIGHT RN IN BEDSIDE REPORT.
--- NOTE | 2022-07-22 17:19 | NUR ---
DR PENA CAME TO SEE THE PT AND SPOKE TO THE DAUGHTER. PLAN IS TO CONTINUE GENTLE REHYDRATION. NO PLANS FOR DIALYSIS AT THIS TIME.
[2022-07-23 04:42] LABS: BASOPHILS ABSOLUTE AUTO 0.01 K/mm3 (0.00-0.23); BASOPHILS PERCENT AUTO 0 % (0-2); EOSINOPHILS ABSOLUTE AUTO 0.11 K/mm3 (0.00-0.68); EOSINOPHILS PERCENT AUTO 3 % (0-6); Hematocrit 36.3 % (33.0-51.0); Hemoglobin 12.1 g/dL (11.5-16.0); IMMATURE GRAN ABSOLUTE AUTO 0.01 K/mm3 (0.00-0.10); IMMATURE GRAN PERCENT AUTO 0 % (0-1); LYMPHOCYTES ABSOLUTE AUTO 0.81 K/mm3 (0.84-5.20); LYMPHOCYTES PERCENT AUTO 20 % (21-46); MONOCYTES ABSOLUTE AUTO 0.38 K/mm3 (0.16-1.47); MONOCYTES PERCENT AUTO 9 % (4-13); Mean Corpuscular HGB 28.5 pg (26.0-34.0); Mean Corpuscular HGB Conc 33.3 g/dL (31.5-36.5); Mean Corpuscular Volume 85 fL (80-100); Mean Platelet Volume 11.2 fL (9.1-12.4); NEUTROPHILS ABSOLUTE AUTO 2.78 K/mm3 (1.96-9.15); NEUTROPHILS PERCENT AUTO 68 % (41-73); Platelet Count 82 K/mm3 (150-400); RDW Coefficient Variation 16.2 % (11.7-14.2); RDW Standard Deviation 50.7 fL (35.1-46.3); Red Blood Cell Count 4.25 M/mm3 (3.80-5.20)
[2022-07-23 04:58] LABS: Bun/Creatinine Ratio 34.7 (12.0-20.0); Calcium, Blood 9.4 mg/dL (8.5-10.1); Creatinine, Blood 2.45 mg/dL (0.40-1.00); Potassium, Blood 4.7 mmol/L (3.5-5.5)
--- NOTE | 2022-07-23 06:36 | NUR ---
RADAR MECHANIC SUMMARY: A&Ox4. PLEASANT AND COOPERATIVE WITH CARE. CALLS APPROPRIATELY AND IS ABLE TO COMMUNICATE NEEDS EFFECTIVELY. NO ACUTE CONCERNS T/O THE EVENING. TELE SINUS @65 W/ BBB, 1DHB AND PACs. NO C / O CP OR DISCOMFORT. D5NS @75mL HR. LABS DRAWN THIS MORNING. WILL REPORT TO ONCOMING RN.
[2022-07-23 14:49] LABS: International Normalized Ratio 1.6; Prothrombin Time Results 16.3 Sec (9.7-11.5)
--- NOTE | 2022-07-23 18:37 | NUR ---
SHIFT SUMMARY PT AWAKE AT START OF SHIFT, WATCHING TV. A&O, PLEASANT AND CO-OP. ADMITTED FOR ARF. NEW ORDERS JUST RECEIVED FROM DR PENA, PRIOR TO SHIFT REPORT. IVF'S DECREASED. PT IMPROVING; INR COMING DOWN; COUMADIN TO BE RESTARTED TONIGHT, PER PHARMACY. K+ WNL'S THIS AM. PT TO D/C TO HOME TOMORROW. PT UP TO BTHRM WITH SBA. UP TO SHOWER THIS AFTERNOON. NO C/O PAIN. DENIED FURTHER NEEDS. CALL LT IN REACH.
[2022-07-24 03:19] LABS: Hematocrit 39.8 % (33.0-51.0); Hemoglobin 12.7 g/dL (11.5-16.0)
[2022-07-24 03:43] LABS: International Normalized Ratio 1.45; Prothrombin Time Results 14.9 Sec (9.7-11.5)
[2022-07-24 03:44] LABS: Albumin, Blood 3.9 g/dL (3.4-5.0); Anion Gap 6 mmol/L (6-16); Blood Urea Nitrogen 37 mg/dL (8-24); Bun/Creatinine Ratio 24.7 (12.0-20.0); CO2, Blood 20 mmol/L (21-32); Calcium, Blood 9.4 mg/dL (8.5-10.1); Chloride, Blood 120 mmol/L (98-108); Glomerular Filtration Rate 38 (60-); Glucose, Blood 121 mg/dL (70-99); Phosphorus, Blood 2.2 mg/dL (2.5-4.9); Potassium, Blood 4.5 mmol/L (3.5-5.5); Sodium, Blood 146 mmol/L (136-145)
--- NOTE | 2022-07-24 04:18 | NUR ---
CALLED AND UPDATED DR PENA WITH LAB RESULTS. NEW ORDERS GIVEN FOR NA PHOS 10 MMOL IV TIMES ONE DOSE, DC MAINT FLUIDS, F/U WITH HIS OFFICE OUTPATIENT BY TUESDAY
--- NOTE | 2022-07-24 06:02 | NUR ---
PATIENT ALERT AND ORIENTED, ROOM AIR, INDEPENDENT. PHOS 2.2, CALLED DR PENA WITH UPDATE ON LAB RESULTS. ORDERS GIVEN FOR 10 MMOL KPHOS IV STAT. NO EVENTS OVERNIGHT
--- NOTE | 2022-07-25 04:51 | NUR ---
PATIENT ALERT AND ORIENTED, ROOM AIR, IV'S SALINE LOCKED, INDEPENDENT W/ WALKER, SLEPT WELL. NO EVENTS OVER NIGHT
[2022-07-25 05:12] LABS: Hemoglobin 12.2 g/dL (11.5-16.0)
[2022-07-25 05:29] LABS: International Normalized Ratio 1.96; Prothrombin Time Results 19.7 Sec (9.7-11.5)
[2022-07-25 06:03] LABS: Albumin, Blood 3.9 g/dL (3.4-5.0); Anion Gap 7 mmol/L (6-16); Blood Urea Nitrogen 25 mg/dL (8-24); Bun/Creatinine Ratio 17.7 (12.0-20.0); CO2, Blood 20 mmol/L (21-32); Calcium, Blood 9.4 mg/dL (8.5-10.1); Chloride, Blood 119 mmol/L (98-108); Creatinine, Blood 1.41 mg/dL (0.40-1.00); Glomerular Filtration Rate 41 (60-); Glucose, Blood 103 mg/dL (70-99); Sodium, Blood 146 mmol/L (136-145)
--- NOTE | 2022-07-25 12:12 | NUR ---
Received report from ongoing nurse. Pt awake at bedside and stated " I think I go home today. Pt took a morning shower and received all medications per emar. Pt spoke with and discharge orders place into computer. Pt daughter is at bedside and ready to take pt home. Pt and family given discharge instructions. Both forearm IV'S taken out.
== END 2022-07-25 11:50 | disposition home or self-care (01) | DRG 683 ==
LOC: ER 10:12 → MEDS 14:40 → ERHOLD 14:40 → MEDS 14:40
PROVIDERS: Family Medicine; Internal Medicine Nephrology; Physician Assistant; Student in an Organized Health Care Education/Training Program; ADMIT Hospitalist
DX: N17.9 Acute kidney failure, unspecified (principal); E87.1 Hypo-osmolality and hyponatremia; G93.49 Other encephalopathy; N18.9 Chronic kidney disease, unspecified; Z28.21 Immunization not carried out because of patient refusal; R04.0 Epistaxis; D89.2 Hypergammaglobulinemia, unspecified; E86.0 Dehydration; B19.20 Unspecified viral hepatitis C without hepatic coma; G89.4 Chronic pain syndrome; G43.909 Migraine, unspecified, not intractable, without status migrainosus; I27.20 Pulmonary hypertension, unspecified; I50.9 Heart failure, unspecified; K21.9 Gastro-esophageal reflux disease without esophagitis; F32.A Depression, unspecified; M81.0 Age-related osteoporosis without current pathological fracture; F03.90 Unspecified dementia, unspecified severity, without behavioral disturbance, psychotic disturbance, mood disturbance, and anxiety; D50.9 Iron deficiency anemia, unspecified; E87.5 Hyperkalemia; E78.5 Hyperlipidemia, unspecified; G25.0 Essential tremor; I95.9 Hypotension, unspecified; E03.9 Hypothyroidism, unspecified; Z95.4 Presence of other heart-valve replacement; Z90.710 Acquired absence of both cervix and uterus; Z88.5 Allergy status to narcotic agent; Z88.8 Allergy status to other drugs, medicaments and biological substances; Z79.899 Other long term (current) drug therapy
CPT/HCPCS: 36415; 51798; 76770; 80047; 80048; 80053; 80069; 82947; 83735; 84100; 84132; 85014; 85018; 85025; 85610; 93005; 93010; 94644; 94664; 96374; 96375; 97110; 97116; 97162; 97165; 97535; 99285-25; A9270; J0610; J1815; J2405; J7030; J7042; J7060; J7799

== ENCOUNTER → 2022-08-19 | Outpatient (CLI) | payer OTHER ==
[~2022-08-19] MED LIST changes: +GABA100 PO; +SPIR25 PO
[2022-08-19 10:27] LABS: Creatinine Urine 62.3 mg/dL (27.00-270.00)
[2022-08-19 10:30] LABS: Microalbumin, Urine Quant. 11.2 mg/L (0.000-20.000)
== END | disposition home or self-care (01) ==
LOC: LAB 08:45 → LAB SHORT 08:45 → EDSTATUS 08-17 11:35 → LAB FUT 08-17 11:35
PROVIDERS: Internal Medicine Nephrology
DX: N18.30 Chronic kidney disease, stage 3 unspecified (principal); D63.1 Anemia in chronic kidney disease; N25.81 Secondary hyperparathyroidism of renal origin; E55.9 Vitamin D deficiency, unspecified; E78.00 Pure hypercholesterolemia, unspecified; R76.9 Abnormal immunological finding in serum, unspecified; R94.5 Abnormal results of liver function studies; R94.6 Abnormal results of thyroid function studies
CPT/HCPCS: 81050; 82043; 82570; 84156

== ENCOUNTER 2022-12-03 17:50 | Inpatient (IN) | payer OTHER ==
[~2022-12-03] VITALS: Ht 157.5 cm; Wt 56.8 kg
[2022-12-03 18:29] LABS: BASOPHILS ABSOLUTE AUTO 0.03 K/mm3 (0.00-0.23); BASOPHILS PERCENT AUTO 0 % (0-2); EOSINOPHILS PERCENT AUTO 0 % (0-6); Hematocrit 43.2 % (33.0-51.0); Hemoglobin 14.1 g/dL (11.5-16.0); IMMATURE GRAN ABSOLUTE AUTO 0.05 K/mm3 (0.00-0.10); IMMATURE GRAN PERCENT AUTO 1 % (0-1); LYMPHOCYTES ABSOLUTE AUTO 0.65 K/mm3 (0.84-5.20); LYMPHOCYTES PERCENT AUTO 6 % (21-46); MONOCYTES ABSOLUTE AUTO 0.72 K/mm3 (0.16-1.47); MONOCYTES PERCENT AUTO 7 % (4-13); Mean Corpuscular HGB 28.3 pg (26.0-34.0); Mean Corpuscular HGB Conc 32.6 g/dL (31.5-36.5); Mean Corpuscular Volume 87 fL (80-100); Mean Platelet Volume 10.7 fL (9.1-12.4); NEUTROPHILS ABSOLUTE AUTO 9.62 K/mm3 (1.96-9.15); NEUTROPHILS PERCENT AUTO 87 % (41-73); Platelet Count 95 K/mm3 (150-400); RDW Coefficient Variation 16.7 % (11.7-14.2); RDW Standard Deviation 52.3 fL (35.1-46.3); Red Blood Cell Count 4.99 M/mm3 (3.80-5.20); White Blood Cell Count 11.07 K/mm3 (4.00-11.30)
[2022-12-03 18:55] LABS: Albumin, Blood 3.9 g/dL (3.4-5.0); Albumin/Globulin Ratio 1.1 (0.8-1.8); Bilirubin, Direct 1.4 mg/dL (0.0-0.3); Bilirubin, Indirect 3.6 mg/dL (0.1-0.7); Bun/Creatinine Ratio 20.2 (12.0-20.0); Calcium, Blood 9.3 mg/dL (8.5-10.1); Creatinine, Blood 1.78 mg/dL (0.40-1.00); Globulin, Blood 3.4 g/dL (2.2-4.0); Potassium, Blood 4.3 mmol/L (3.5-5.5); Total Protein, Blood 7.3 g/dL (6.4-8.2)
[2022-12-03 18:56] LABS: Prothrombin Time Results 48.7 Sec (9.7-11.5)
[2022-12-03 19:00] LABS: International Normalized Ratio 5.09
[2022-12-03] MEDS ORDERED: FLUTICASONE-SA1 EAC1 (22:21)
[2022-12-03] MEDS ORDERED: ZINC15 PO (22:21)
[2022-12-04] VITALS (14 sets, daily range): BP systolic 87–141; BP diastolic 57–76
[2022-12-04 04:06] LABS: BASOPHILS ABSOLUTE AUTO 0.04 K/mm3 (0.00-0.23); BASOPHILS PERCENT AUTO 1 % (0-2); EOSINOPHILS ABSOLUTE AUTO 0.01 K/mm3 (0.00-0.68); EOSINOPHILS PERCENT AUTO 0 % (0-6); Hematocrit 42.1 % (33.0-51.0); Hemoglobin 13.7 g/dL (11.5-16.0); IMMATURE GRAN ABSOLUTE AUTO 0.03 K/mm3 (0.00-0.10); IMMATURE GRAN PERCENT AUTO 0 % (0-1); LYMPHOCYTES ABSOLUTE AUTO 0.57 K/mm3 (0.84-5.20); LYMPHOCYTES PERCENT AUTO 7 % (21-46); MONOCYTES ABSOLUTE AUTO 0.64 K/mm3 (0.16-1.47); MONOCYTES PERCENT AUTO 8 % (4-13); Mean Corpuscular HGB 28.2 pg (26.0-34.0); Mean Corpuscular HGB Conc 32.5 g/dL (31.5-36.5); Mean Corpuscular Volume 87 fL (80-100); Mean Platelet Volume 11.3 fL (9.1-12.4); NEUTROPHILS PERCENT AUTO 84 % (41-73); Platelet Count 83 K/mm3 (150-400); RDW Coefficient Variation 16.5 % (11.7-14.2); RDW Standard Deviation 52.2 fL (35.1-46.3); Red Blood Cell Count 4.85 M/mm3 (3.80-5.20); White Blood Cell Count 8.29 K/mm3 (4.00-11.30)
[2022-12-04 04:24] LABS: Albumin, Blood 3.7 g/dL (3.4-5.0); Albumin/Globulin Ratio 1.1 (0.8-1.8); Bilirubin, Total 4.7 mg/dL (0.1-1.0); Bun/Creatinine Ratio 21.7 (12.0-20.0); Calcium, Blood 9.1 mg/dL (8.5-10.1); Creatinine, Blood 1.66 mg/dL (0.40-1.00); Globulin, Blood 3.4 g/dL (2.2-4.0); Potassium, Blood 3.9 mmol/L (3.5-5.5); Total Protein, Blood 7.1 g/dL (6.4-8.2)
--- NOTE | 2022-12-04 06:47 | NUR ---
SHIFT SUMMARY: PT ADMITTED TO UNIT LAST EVENING. DAUGHTER, BOB, ACCOMPANIES PT. DAUGHTER IS CAREGIVER AND PT LIVES WITH HER. PT IS A&OX4. DAUGHTER REPORTS DIAGNOSIS OF DEMENTIA BUT NOT OBSERVED AT THIS TIME. PT IS COOPERATIVE AND PLEASANT. TRANSFERED TO BED VIA SLIDER SHEET. PT DENIES ANY FEELINGS OF SOB. O2 SATS > 92% ON RA. BP'S SOFT WITH MAP > 65. ASYMPTOMATIC FOR LOW BP'S. PUREWICK IN PLACED. REPOSITIONS SELF FOR COMFORT. ORIENTED TO ROOM AND CALL LIGHT. BED ALARM ON.
--- NOTE | 2022-12-04 08:20 | NUR ---
INITIAL ASSESSMENT PATIENT ALERT AND ORIENTED X 4, AFEBRILE. PATIENT WEAK; SBA WITH WALKER. PATIENT STATES THE TOP R SIDE OF HER HEAD FEELS NUMB AND WHEN SHE COUGHS THERE IS A SHARP, SHOOTING PAIN IN SAME SPOT. PATIENT COMPLAINING OF BACK PAIN THIS AM. PATIENT STATES SHE CANNOT TAKE TYLENOL BECAUSE IT MAKES HER THROW UP BUT THAT SHE TAKES VICODIN AT HOME FOR PAIN. PATIENT SATTING 90% AND GREATER ON RA. CRACKLES NOTED IN RLL; ALL OTHER LUNG LOBES CLEAR TO AUSCULTATION. PATIENT HAS OCCASIONAL, NONPRODUCTIVE COUGH. PATIENT HAS SOME SOB WITH EXERTION. PATIENT DOES TRY TO CLEAR THROAT QUITE OFTEN. PATIENT IN SR WITH FIRST DEGREE HEART BLOCK. HR IN THE 70S. BP 118/67. REAL ESTATE OPERATIONS MANAGER RN REPORTED BP SOFT AFTER IV LASIX LAST NIGHT. DATE OF LAST BM UNKNOWN. PATIENT APPEARS TO HAVE GOOD APPETITE. PUREWICK IN PLACE DRAINING YELLOW COLORED URINE. SKIN FRAGILE. SCATTERED BRUISES NOTED. PATIENT ON COUMADIN AT HOME. CALL LIGHT IN REACH. WILL CONTINUE TO MONITOR PATIENT FREQUENTLY THROUGHOUT SHIFT.
[2022-12-04] MEDS ORDERED: HYDR1TAB94 PO (08:46)
--- NOTE | 2022-12-04 11:08 | NUR ---
DR. FRANCOIS UPDATED ON PATIENT STATUS. INFORMED THAT PATIENT COMPLAINING OF BACK PAIN AND NUMBNESS/ SHARP, SHOOTING PAIN TO TOP OF R HEAD WITH COUGHING. INFORMED THAT PATIENT STATES TYLENOL MAKES HER THROW UP BUT THAT SHE TAKES VICODIN AT HOME FOR PAIN. INFORMED THAT PATIENT DOES NOT HAVE DVT PROPHYLAXIS AND THAT PATIENT HAS NOT HAD REPEAT INR LEVEL AND THAT FAMILY CURIOUS ABOUT THIS. ORDER FOR PAIN MEDICATION AND SCDS OBTAINED. DR. FRANCOIS TO ROOM TO SPEAK WITH PATIENT AND HER DAUGHTER, BOB.
--- NOTE | 2022-12-04 12:45 | NUR ---
PATIENT HAS TEMP OF 100.1 DEGREES FAHRENHEIT. HR IN THE 70S. BP 126/73. NO OTHER ACUTE CHANGES TO NOTE ON AT THIS TIME. WILL CONTINUE TO MONITOR.
--- NOTE | 2022-12-04 17:16 | NUR ---
SHIFT SUMMARY PATIENT REMAINED ALERT AND ORIENTED X 4. PATIENT PLEASANT AND COOPERATIVE ALL SHIFT. PATIENT HAD TMAX OF 100.1 DEGREES FAHRENHEIT. PATIENT GIVEN PRN OXYCODONE FOR COMPLAINTS OF BACK PAIN THIS SHIFT AND PRN CHLORASEPTIC SPRAY FOR COMPLAINTS OF SORE THROAT FROM NASAL DRAINAGE BROUGHT ON BY ALLERGIES. PATIENT UP TO BATHROOM WITH SBA AND FWW. PATIENT HAS REMAINED SATTING 90% AND GREATER ON RA. PATIENT CONTINUES TO HAVE COUGH. PATIENT STATES SHE IS COUGHING UP WHITE MUCUS BUT NONE NOTED BY NURSE. PATIENT REMAINED SR WITH FIRST DEGREE BLOCK. HR REMAINED IN THE 70S. SBP 1-TEENS TO 120S. SCDS PLACED THIS SHIFT FOR DVT PROPHYLAXIS. PATIENT HAD BM THIS SHIFT. PATIENT HAD ADEQUATE APPETITE. PATIENT HAD ADEQUATE URINE OUTPUT. NO CHANGES TO SKIN NOTED. PATIENT HAD SHOWER THIS SHIFT. PT ORDERED THIS SHIFT. XR THORACIC AND LUMBAR PERFORMED THIS SHIFT. PATIENT TO BE TRANSFERRED TO MEDICAL FLOOR SHORTLY.
--- NOTE | 2022-12-04 18:36 | NUR ---
PATIENT TRANSFERRED TO PCU, ROOM 330. DAUGHTER, BOB, CALLED AND INFORMED OF TRANSFER. ALL BELONGINGS SENT WITH PATIENT. TRANSFER COMPLETE.
[2022-12-05 02:25] VITALS: BP 101/69
[2022-12-05 05:39] LABS: BASOPHILS ABSOLUTE AUTO 0.02 K/mm3 (0.00-0.23); BASOPHILS PERCENT AUTO 0 % (0-2); EOSINOPHILS ABSOLUTE AUTO 0.01 K/mm3 (0.00-0.68); EOSINOPHILS PERCENT AUTO 0 % (0-6); Hemoglobin 13.4 g/dL (11.5-16.0); IMMATURE GRAN ABSOLUTE AUTO 0.02 K/mm3 (0.00-0.10); IMMATURE GRAN PERCENT AUTO 0 % (0-1); LYMPHOCYTES ABSOLUTE AUTO 0.64 K/mm3 (0.84-5.20); LYMPHOCYTES PERCENT AUTO 9 % (21-46); MONOCYTES ABSOLUTE AUTO 0.65 K/mm3 (0.16-1.47); MONOCYTES PERCENT AUTO 9 % (4-13); Mean Corpuscular HGB 28.6 pg (26.0-34.0); Mean Corpuscular HGB Conc 33.5 g/dL (31.5-36.5); Mean Corpuscular Volume 85 fL (80-100); NEUTROPHILS ABSOLUTE AUTO 5.92 K/mm3 (1.96-9.15); NEUTROPHILS PERCENT AUTO 82 % (41-73); Platelet Count 83 K/mm3 (150-400); RDW Coefficient Variation 16.3 % (11.7-14.2); RDW Standard Deviation 49.9 fL (35.1-46.3); Red Blood Cell Count 4.69 M/mm3 (3.80-5.20); White Blood Cell Count 7.26 K/mm3 (4.00-11.30)
[2022-12-05 06:01] LABS: Prothrombin Time Results 48.2 Sec (9.7-11.5)
--- NOTE | 2022-12-05 06:01 | NUR ---
PATIENT REMAINS ALERT AND ORIENTED X4, COOPERATIVE WITH CARE, CALLS TO MAKE NEEDS KNOWN. PATIENT DID FLIP INTO AFIB, WAS ALERTED BY TELE AND DIGITAL MARKETING EXECUTIVE, ONLY SYMPTOM REPORTED WAS A RAPID HEART RATE WHICH WAS VERY AUDIBLE. SOME HYPOTENTION, BUT OTHERWISE VSS. CALLED MD, METOPROLOL INCREASED TO 25 BID, WITH GOOD RESULTS. 1X ASSIST WITH FWW TO RESTROOM. PIV SL. NO OTHER ISSUES TO REPORT.
[2022-12-05 06:06] LABS: Albumin, Blood 3.4 g/dL (3.4-5.0); Bilirubin, Total 4.1 mg/dL (0.1-1.0); Bun/Creatinine Ratio 26.6 (12.0-20.0); Creatinine, Blood 1.28 mg/dL (0.40-1.00); Globulin, Blood 3.3 g/dL (2.2-4.0); Total Protein, Blood 6.7 g/dL (6.4-8.2)
[2022-12-05 06:11] LABS: International Normalized Ratio 5.03
[2022-12-05 07:38] VITALS: BP 106/71
--- NOTE | 2022-12-05 09:41 | NUR ---
NURSE NOTE THIS NURSE AGREES WITH STUDENT NURSES SHIFT ASSESSMENT
--- NOTE | 2022-12-05 13:36 | NUR ---
DISCHARGE NOTE PT DISCHARGED HOME WITH FAMILY. IV REMOVED AND FOUND INTACT. DRESSING PLACED WITH GAUZE AND KERLEX. FOLLOW UP APPOINTMENTS AND CHANGES TO MEDICATION REVIEWED. PT AND FAMILY ALLOWED TO ASK QUESTIONS UNTIL SATISIFIED. PT VERBALIZES UNDERSTANDING OF DISCHARGE EDUCATION. ALL BELONGINGS COLLECTED PT TAKEN TO ER EXIT VIA WHEELCHAIR WITH MEDICAL FLOOR STAFF TO AWAITING POV WITH HER DAUGHTER THE HANGERSMITH.
--- NOTE | 2022-12-05 13:41 | NUR ---
NURSE NOTE THIS NURSE EDUCATED PATIENT ABOUT DISCHARGE INSTRUCTIONS. AGREED WITH STUDENT NURSE ASSESSMENTS AND NOTES.
== END 2022-12-05 13:30 | disposition home or self-care (01) | DRG 291 ==
LOC: ER 17:50 → PCU 17:51 → MEDS 12-04 15:53 → PCU 12-04 15:53 → MEDS 12-04 18:38
PROVIDERS: Family Medicine; Physician Assistant; ADMIT Internal Medicine
DX: I13.0 Hypertensive heart and chronic kidney disease with heart failure and stage 1 through stage 4 chronic kidney disease, or unspecified chronic kidney disease (principal); I50.33 Acute on chronic diastolic (congestive) heart failure; F32.A Depression, unspecified; Z66 Do not resuscitate; K21.9 Gastro-esophageal reflux disease without esophagitis; I50.813 Acute on chronic right heart failure; E03.9 Hypothyroidism, unspecified; F03.90 Unspecified dementia, unspecified severity, without behavioral disturbance, psychotic disturbance, mood disturbance, and anxiety; N18.9 Chronic kidney disease, unspecified; E78.5 Hyperlipidemia, unspecified; G43.909 Migraine, unspecified, not intractable, without status migrainosus; I27.20 Pulmonary hypertension, unspecified; I27.81 Cor pulmonale (chronic); I95.9 Hypotension, unspecified; D50.9 Iron deficiency anemia, unspecified; R79.89 Other specified abnormal findings of blood chemistry; E80.7 Disorder of bilirubin metabolism, unspecified; R79.1 Abnormal coagulation profile; M25.511 Pain in right shoulder; G89.29 Other chronic pain; R10.9 Unspecified abdominal pain; B19.20 Unspecified viral hepatitis C without hepatic coma; M81.0 Age-related osteoporosis without current pathological fracture; I71.9 Aortic aneurysm of unspecified site, without rupture; Z88.5 Allergy status to narcotic agent; Z88.6 Allergy status to analgesic agent; Z90.710 Acquired absence of both cervix and uterus; Z95.1 Presence of aortocoronary bypass graft; Z95.4 Presence of other heart-valve replacement; Z79.01 Long term (current) use of anticoagulants; Z79.899 Other long term (current) drug therapy; W06.XXXA Fall from bed, initial encounter
CPT/HCPCS: 36415; 70450; 71045; 72070; 72100; 73030; 73502; 76705; 80053; 82248; 83880; 84484; 85025; 85610; 93005; 93010; 94640; 94664; 94760; 94762; 96374; 97116; 97161; 99285-25; A9270; G0378; J1940

== ENCOUNTER 2022-12-13 11:06 | Inpatient (IN) | payer OTHER ==
[~2022-12-13] VITALS: Ht 157.5 cm; Wt 54.4 kg
[~2022-12-13 11:06] MED LIST changes: +FLUTICASONE-SA1 EAC1; +HYDR1TAB94 PO; +ZINC15 PO
[2022-12-13 12:48] LABS: Albumin/Globulin Ratio 0.8 (0.8-1.8); Bilirubin, Total 2.5 mg/dL (0.1-1.0); Bun/Creatinine Ratio 26.6 (12.0-20.0); Calcium, Blood 8.5 mg/dL (8.5-10.1); Creatinine, Blood 1.39 mg/dL (0.40-1.00); Globulin, Blood 3.6 g/dL (2.2-4.0); Potassium, Blood 3.8 mmol/L (3.5-5.5); Total Protein, Blood 6.6 g/dL (6.4-8.2)
[2022-12-13 12:49] LABS: BASOPHILS ABSOLUTE AUTO 0.04 K/mm3 (0.00-0.23); BASOPHILS PERCENT AUTO 0 % (0-2); EOSINOPHILS ABSOLUTE AUTO 0.02 K/mm3 (0.00-0.68); EOSINOPHILS PERCENT AUTO 0 % (0-6); Hematocrit 38.9 % (33.0-51.0); Hemoglobin 12.6 g/dL (11.5-16.0); IMMATURE GRAN ABSOLUTE AUTO 0.07 K/mm3 (0.00-0.10); IMMATURE GRAN PERCENT AUTO 1 % (0-1); LYMPHOCYTES ABSOLUTE AUTO 0.61 K/mm3 (0.84-5.20); LYMPHOCYTES PERCENT AUTO 4 % (21-46); MONOCYTES ABSOLUTE AUTO 0.84 K/mm3 (0.16-1.47); MONOCYTES PERCENT AUTO 6 % (4-13); Mean Corpuscular HGB 27.5 pg (26.0-34.0); Mean Corpuscular HGB Conc 32.4 g/dL (31.5-36.5); Mean Corpuscular Volume 85 fL (80-100); Mean Platelet Volume 9.7 fL (9.1-12.4); NEUTROPHILS ABSOLUTE AUTO 12.74 K/mm3 (1.96-9.15); NEUTROPHILS PERCENT AUTO 89 % (41-73); Platelet Count 167 K/mm3 (150-400); RDW Coefficient Variation 16.1 % (11.7-14.2); RDW Standard Deviation 50.2 fL (35.1-46.3); Red Blood Cell Count 4.59 M/mm3 (3.80-5.20); White Blood Cell Count 14.32 K/mm3 (4.00-11.30)
[2022-12-13 13:19] LABS: Prothrombin Time Results >90.0 Sec (9.7-11.5)
[2022-12-13 13:20] LABS: International Normalized Ratio >10.00
[2022-12-13 14:00] LABS: Source, Urine Clean Catch
[2022-12-13 14:15] LABS: Appearance, Urine Clear (Clear); Bilirubin, Urine Neg (Neg); Blood, Urine Neg (Neg); Color, Urine Yellow (P-Yellow); Glucose Qualitative, Urine Neg (Neg); Ketones, Urine Neg (Neg); Leukocyte Esterase, Urine Neg (Neg); Nitrite, Urine Neg (Neg); Protein, Urine Neg (Neg); Specific Gravity, Urine 1.015 (1.003-1.022); Urobilinogen, Urine NORM (Normal)
[2022-12-13 15:08] VITALS: BP 116/63
--- NOTE | 2022-12-13 16:53 | NUR ---
TERE ARRIVED TO ROOM 334 @ 1505 FROM THE ED VIA GOURNEY. SHE WAS ADMITTED FOR SUPRATHERAPEUTIC INR , SHE HAS BASELINE DIMENTIA BUT WAS A&O X 3-4, PLEASANT AND COOPERATIVE WITH CARE. PT ARRIVED ON THE UNIT WITH HER DAUGHTER. PT WAS NPO PRIOR TO BEING TAKEN FOR CT IMAGING. SHE RETURNED AND IS SLEEPING, NPO STATUS HAS BEEN CHANGED TO CARDIAC DIET.
--- NOTE | 2022-12-13 17:01 | NUR ---
ADMIT ASSESSMENT I WAS PRESENT DURING AND AGREE WITH THE STUDENT MODESTA MITCHELL ASSESSMENT AND DOCUMENTATION OF THIS PT.
[2022-12-13 18:08] LABS: BASOPHILS ABSOLUTE AUTO 0.05 K/mm3 (0.00-0.23); BASOPHILS PERCENT AUTO 0 % (0-2); EOSINOPHILS ABSOLUTE AUTO 0.02 K/mm3 (0.00-0.68); EOSINOPHILS PERCENT AUTO 0 % (0-6); Hematocrit 38.8 % (33.0-51.0); Hemoglobin 12.7 g/dL (11.5-16.0); IMMATURE GRAN ABSOLUTE AUTO 0.06 K/mm3 (0.00-0.10); IMMATURE GRAN PERCENT AUTO 0 % (0-1); LYMPHOCYTES ABSOLUTE AUTO 0.65 K/mm3 (0.84-5.20); LYMPHOCYTES PERCENT AUTO 5 % (21-46); MONOCYTES ABSOLUTE AUTO 0.72 K/mm3 (0.16-1.47); MONOCYTES PERCENT AUTO 5 % (4-13); Mean Corpuscular HGB 27.8 pg (26.0-34.0); Mean Corpuscular HGB Conc 32.7 g/dL (31.5-36.5); Mean Corpuscular Volume 85 fL (80-100); Mean Platelet Volume 10.3 fL (9.1-12.4); NEUTROPHILS ABSOLUTE AUTO 11.86 K/mm3 (1.96-9.15); NEUTROPHILS PERCENT AUTO 89 % (41-73); Platelet Count 174 K/mm3 (150-400); RDW Coefficient Variation 16.1 % (11.7-14.2); Red Blood Cell Count 4.57 M/mm3 (3.80-5.20); White Blood Cell Count 13.36 K/mm3 (4.00-11.30)
[2022-12-13 21:16] VITALS: BP 103/51
--- NOTE | 2022-12-14 03:22 | NUR ---
NOTIFIED BY LAB THAT PT HAD POSITIVE RESULT ON BLOOD CULTURE FOR GRAM POSITIVE COCCI CHAIN. HOSPITALIST DR. CARY NOTIFIED. NO ORDERS PLACED. BRIEFLY DISCUSSED WITH RIOS CLARK RN. NO CHANGE IN PT STATUS. WILL CONTINUE TO MONITOR.
[2022-12-14 03:40] VITALS: BP 125/78
--- NOTE | 2022-12-14 03:43 | NUR ---
SHIFT HAS BEEN UNREMARKABLE. PT HAD PAIN EARLY IN SHIFT WHICH SEEMS TO HAVE BEEN MOSTLY WELL MANAGED ON REST AND REPOSITIONING. NO PAIN MEDICATIONS ADMINISTERED THUS FAR. SBA TO BATHROOM, CALLS APPROPRIATELY. CALL FROM LAB AT 0305 THAT PT HAD POSITIVE BLOOD CULTURE RESULTS. HOSPITALIST DR. CARY NOTIFIED. SEE RELATED NOTE FOR MORE DETAILS. SHIFT OTHERWISE NOT NOTEWORTHY. PT HAS SLEPT SPORADICALLY. BED LOCKED IN LOWEST POSITION. CALL LIGHT LEFT WITHIN REACH.
[2022-12-14 05:08] LABS: BASOPHILS ABSOLUTE AUTO 0.04 K/mm3 (0.00-0.23); BASOPHILS PERCENT AUTO 0 % (0-2); EOSINOPHILS ABSOLUTE AUTO 0.02 K/mm3 (0.00-0.68); EOSINOPHILS PERCENT AUTO 0 % (0-6); Hematocrit 35.3 % (33.0-51.0); Hemoglobin 11.8 g/dL (11.5-16.0); IMMATURE GRAN ABSOLUTE AUTO 0.08 K/mm3 (0.00-0.10); IMMATURE GRAN PERCENT AUTO 1 % (0-1); LYMPHOCYTES PERCENT AUTO 5 % (21-46); MONOCYTES ABSOLUTE AUTO 0.79 K/mm3 (0.16-1.47); MONOCYTES PERCENT AUTO 6 % (4-13); Mean Corpuscular HGB Conc 33.4 g/dL (31.5-36.5); Mean Corpuscular Volume 84 fL (80-100); Mean Platelet Volume 10.5 fL (9.1-12.4); NEUTROPHILS ABSOLUTE AUTO 11.41 K/mm3 (1.96-9.15); NEUTROPHILS PERCENT AUTO 88 % (41-73); Platelet Count 169 K/mm3 (150-400); RDW Coefficient Variation 16.1 % (11.7-14.2); RDW Standard Deviation 49.2 fL (35.1-46.3); Red Blood Cell Count 4.22 M/mm3 (3.80-5.20); White Blood Cell Count 12.94 K/mm3 (4.00-11.30)
[2022-12-14 05:57] LABS: Albumin, Blood 2.9 g/dL (3.4-5.0); Albumin/Globulin Ratio 0.8 (0.8-1.8); Bilirubin, Total 2.5 mg/dL (0.1-1.0); Bun/Creatinine Ratio 23.8 (12.0-20.0); Calcium, Blood 8.9 mg/dL (8.5-10.1); Creatinine, Blood 1.51 mg/dL (0.40-1.00); Globulin, Blood 3.6 g/dL (2.2-4.0); Magnesium, Blood 2.1 mg/dL (1.6-2.4); Potassium, Blood 3.9 mmol/L (3.5-5.5); Total Protein, Blood 6.5 g/dL (6.4-8.2)
[2022-12-14 07:23] VITALS: BP 116/72
[2022-12-14 09:01] VITALS: BP 131/78
[2022-12-14 09:08] LABS: International Normalized Ratio 3.17; Prothrombin Time Results 31.2 Sec (9.7-11.5)
[2022-12-14 15:38] VITALS: BP 112/65
--- NOTE | 2022-12-14 17:30 | NUR ---
PATIENT IS ALERT AND ORIENTED AND COOPERATIVE WITH CARE. THE PATIENT'S DAUGHTER WAS AT THE BEDSIDE THIS MORNING. PATIENT HAD AN EPISODE OF NAUSEA AND VOMITTING. C/O A NOSE BLEED THAT RESOLVED ON ITS OWN. C/O LEFT GROIN PAIN AT AN OLD INSERTION SITE OF A CARDIA CATHETERIZATION TWO YEARS AGO. NO BRUISING NOTED AT THIS SITE. A HEATING PAD AND TYLENOL WAS ADMINISTERED FOR THIS GROIN PAIN. PATIENT C/O SEVERE NECK PAIN, PATIENT STATES "IT FEELS LIKE A PINCHED NERVE", MEDICATED PER EMAR AND HEATING PAD PLACED ON HER NECK. PATIENT IS ON RA. MAKES HER NEEDS KNOWN. WILL CONTINUE TO MONITOR
[2022-12-14 19:49] VITALS: BP 103/68
[2022-12-15 03:32] VITALS: BP 99/62
--- NOTE | 2022-12-15 04:24 | NUR ---
SHIFT HAS BEEN UNREMARKABLE. PT TOOK 2100 MEDICATIONS WITHOUT DIFFICULTY AND HAS SLEPT THROUGH MUCH OF REMAINDER OF SHIFT. CALLS OCCASIONALLY FOR SBA TO BATHROOM. STEADY ON FEET. HAS BEEN AOX4 THROUGHOUT SHIFT. BASELINE DEMENTIA. PLEASANT, COOPERATIVE WITH CARE. NO COMPLAINTS OF PAIN THIS SHIFT, REINFORCED IMPORTANCE OF NOTIFYING STAFF IF PAIN ESCALATES SO THAT WE CAN MANAGE VIA EMAR AND PATIENT VOICED UNDERSTANDING. BED LOCKED IN LOWEST POSITION. CALL LIGHT LEFT WITHIN REACH.
[2022-12-15 07:57] VITALS: BP 100/60
[2022-12-15 09:05] LABS: International Normalized Ratio 1.38; Prothrombin Time Results 14.2 Sec (9.7-11.5)
--- NOTE | 2022-12-15 11:19 | NUR ---
Initial palliative care consult: Taryn is a 67 year old with a history of a mechanical heart valve, Hep C, HLD, MDD, subdural hematoma, osteoporosis, essential tremors, HTN, GERD, hypotension, anemia, CHF. Taryn and her dtr, Joleen are requesting assistance with completing a POLST form. Explained POLST form and answered questions for Taryn and Joleen. Completed POLST form. Pt requests to be a DNR with limited interventions. Called Dr. Portillo, placed DNR order in computer. MD to sign POLST during rounds. Will plan to process POLST when signed by MD. Taryn reports she lives with Joleen. Explained that [facility] has an outpatient chronic illness management program. They verbalized they will follow up with PCP after discharge if they would like to be a part of that chronic illness management program.
--- NOTE | 2022-12-15 12:32 | NUR ---
Returned to Taryn's room. Taryn is sleeping. Joleen is at the bedside. POLST has been signed. Copies made of the POLST form. Original POLST and copy given to Joleen. Copy of POLST sent to medical records at Sd Ruiz's (pt's PCP) office and OR POLST Registry.
[2022-12-15 13:17] LABS: BASOPHILS ABSOLUTE AUTO 0.05 K/mm3 (0.00-0.23); BASOPHILS PERCENT AUTO 0 % (0-2); EOSINOPHILS ABSOLUTE AUTO 0.03 K/mm3 (0.00-0.68); EOSINOPHILS PERCENT AUTO 0 % (0-6); Hematocrit 39.6 % (33.0-51.0); Hemoglobin 12.9 g/dL (11.5-16.0); IMMATURE GRAN ABSOLUTE AUTO 0.09 K/mm3 (0.00-0.10); IMMATURE GRAN PERCENT AUTO 1 % (0-1); LYMPHOCYTES PERCENT AUTO 4 % (21-46); MONOCYTES ABSOLUTE AUTO 0.76 K/mm3 (0.16-1.47); MONOCYTES PERCENT AUTO 6 % (4-13); Mean Corpuscular HGB 27.9 pg (26.0-34.0); Mean Corpuscular HGB Conc 32.6 g/dL (31.5-36.5); Mean Corpuscular Volume 86 fL (80-100); Mean Platelet Volume 9.8 fL (9.1-12.4); NEUTROPHILS ABSOLUTE AUTO 12.36 K/mm3 (1.96-9.15); NEUTROPHILS PERCENT AUTO 89 % (41-73); Platelet Count 223 K/mm3 (150-400); RDW Coefficient Variation 16.3 % (11.7-14.2); RDW Standard Deviation 50.1 fL (35.1-46.3); Red Blood Cell Count 4.63 M/mm3 (3.80-5.20); White Blood Cell Count 13.89 K/mm3 (4.00-11.30)
[2022-12-15 14:51] VITALS: BP 99/61
--- NOTE | 2022-12-15 16:15 | NUR ---
PT IS A/OX3, PLEASANT AND COOPERATIVE, FORGETFULL AT TIMES. THE PT IS UP WITH MINIMAL ASSIST. PT WAS UP IN THE CHAIR AT THE BEDSIDE FOR MOST OF THE MORNING. THE PT SHOWERED TODAY. PT APPEARS TO BE BREATHING EASILY ON RA AT THIS TIME. PT DENIED PAIN SO FAR THIS SHIFT. THE PT HAD COUGHED UP A SMALL AMOUNT OF BECK BLOOD THIS AFTERNOON. PT REPORTED THAT SHE FELT TIRED TODAY. PT DAUGHTER WAS IN TO VISIT WITH HER TODAY. CALL LIGHT IN REACH. WILL CONTINUE TO MONIOTR AND ASSESS FOR CHANGES
[2022-12-15 21:20] VITALS: BP 95/53
[2022-12-16 03:25] VITALS: BP 116/69
--- NOTE | 2022-12-16 04:30 | NUR ---
SHIFT SUMMARY: PT A&O X3. OCCASIONALLY FORGETFUL. PT PLEASANT AND COOPERATIVE WITH ALL CARE. NO ACUTE CHANGES WITH PT THIS SHIFT. PT SB ASSIST WITH TRANSFERS. HEPARIN INFUSING @ 16U/KG/HR. PT SLIGHTLY HYPOTENSIVE WITH BEGINNING OF SHIFT VITALS BUT HAS NOW RESOLVED. NO C/O PAIN. NO BLOOD WHEN COUGHING. PT SLEEPING COMFORTABLY IN ROOM. CALL LIGHT IN REACH. BED IN LOWEST POSITION. WILL CONTINUE TO MONITOR.
[2022-12-16 04:57] LABS: BASOPHILS ABSOLUTE AUTO 0.05 K/mm3 (0.00-0.23); BASOPHILS PERCENT AUTO 0 % (0-2); EOSINOPHILS ABSOLUTE AUTO 0.04 K/mm3 (0.00-0.68); EOSINOPHILS PERCENT AUTO 0 % (0-6); Hemoglobin 12.6 g/dL (11.5-16.0); IMMATURE GRAN ABSOLUTE AUTO 0.07 K/mm3 (0.00-0.10); IMMATURE GRAN PERCENT AUTO 1 % (0-1); LYMPHOCYTES ABSOLUTE AUTO 0.94 K/mm3 (0.84-5.20); LYMPHOCYTES PERCENT AUTO 8 % (21-46); MONOCYTES ABSOLUTE AUTO 0.81 K/mm3 (0.16-1.47); MONOCYTES PERCENT AUTO 7 % (4-13); Mean Corpuscular HGB 27.9 pg (26.0-34.0); Mean Corpuscular HGB Conc 33.2 g/dL (31.5-36.5); Mean Corpuscular Volume 84 fL (80-100); NEUTROPHILS ABSOLUTE AUTO 10.14 K/mm3 (1.96-9.15); NEUTROPHILS PERCENT AUTO 84 % (41-73); Platelet Count 233 K/mm3 (150-400); Red Blood Cell Count 4.52 M/mm3 (3.80-5.20); White Blood Cell Count 12.05 K/mm3 (4.00-11.30)
[2022-12-16 05:13] LABS: International Normalized Ratio 1.39; Prothrombin Time Results 14.3 Sec (9.7-11.5)
[2022-12-16 08:14] VITALS: BP 92/49
[2022-12-16 17:00] VITALS: BP 91/46
--- NOTE | 2022-12-16 17:24 | NUR ---
PT IS A/OX3, PLEASANT AND COOPERATIVE. THE PT IS UP WITH MINIMAL ASSIST WEAK ON HER FEET. THE PT REPORTED ON GOING NECK PAIN. THE PT WAS MEDICATED FOR PAIN T/O THE DAY. PT APPEARS TO BE BREATHING EASILY ON RA AT THIS TIME. THE PT WAS UP IN THE CHAIR FOR MEALS TODAY. CALL LIGHT IN REACH. WILL CONTINUE TO MONITOR AND ASSESS FOR CHANGES.
[2022-12-16 17:35] LABS: International Normalized Ratio 1.51; Prothrombin Time Results 15.5 Sec (9.7-11.5)
[2022-12-16 19:43] VITALS: BP 91/59
[2022-12-17 05:48] LABS: BASOPHILS ABSOLUTE AUTO 0.06 K/mm3 (0.00-0.23); BASOPHILS PERCENT AUTO 1 % (0-2); EOSINOPHILS PERCENT AUTO 1 % (0-6); Hematocrit 33.8 % (33.0-51.0); Hemoglobin 11.1 g/dL (11.5-16.0); IMMATURE GRAN ABSOLUTE AUTO 0.04 K/mm3 (0.00-0.10); IMMATURE GRAN PERCENT AUTO 1 % (0-1); LYMPHOCYTES ABSOLUTE AUTO 1.02 K/mm3 (0.84-5.20); LYMPHOCYTES PERCENT AUTO 13 % (21-46); MONOCYTES ABSOLUTE AUTO 0.78 K/mm3 (0.16-1.47); MONOCYTES PERCENT AUTO 10 % (4-13); Mean Corpuscular HGB 27.7 pg (26.0-34.0); Mean Corpuscular HGB Conc 32.8 g/dL (31.5-36.5); Mean Corpuscular Volume 84 fL (80-100); NEUTROPHILS ABSOLUTE AUTO 6.17 K/mm3 (1.96-9.15); NEUTROPHILS PERCENT AUTO 76 % (41-73); Platelet Count 231 K/mm3 (150-400); RDW Standard Deviation 49.4 fL (35.1-46.3); Red Blood Cell Count 4.01 M/mm3 (3.80-5.20); White Blood Cell Count 8.17 K/mm3 (4.00-11.30)
[2022-12-17 06:24] LABS: International Normalized Ratio 1.81; Prothrombin Time Results 18.4 Sec (9.7-11.5)
[2022-12-17 07:40] VITALS: BP 90/49
--- NOTE | 2022-12-17 08:07 | NUR ---
PURCHASE ANALYST SUMMARY Taryn slept well all night. Heparin dose was decreased from 16 units/kg/hr to 15 units/kg/hr in the morning. Ambulates independently in the room with her own walker. Does require a stand by while she has the IV pole. Neck quite painful at hs. [place] given with good relief
[2022-12-17 14:21] LABS: Bun/Creatinine Ratio 18.3 (12.0-20.0); Calcium, Blood 9.2 mg/dL (8.5-10.1); Creatinine, Blood 1.75 mg/dL (0.40-1.00); Potassium, Blood 4.6 mmol/L (3.5-5.5)
[2022-12-17 15:29] VITALS: BP 88/51
[2022-12-17 15:46] VITALS: BP 88/51
[2022-12-17 16:17] LABS: Hemoglobin 11.5 g/dL (11.5-16.0)
--- NOTE | 2022-12-17 17:07 | NUR ---
PT IS A/OX4, PLEASANT AND COOPERATIVE. THE PT IS UP WITH MINIMAL ASSIST USEING THE FWW. THE PT APPEARS TO BE BREATHING EASILY ON RA,. THE PT DENIES SO, N/V OR C/P. THE PT DOES REPORT NECK PAIN/STIFFNESS, PT WAS MEDICATED FOR PAIN T/O THE DAY. THE PT CONTINUES ON A HEPRIN GTT MANAGED BY THE PHARMACY. PT DAUGHTER WAS IN TO VISIT TODAY. PTS SBP AT [address] SHAW WAS NOTIFIED. NEW ORDERS WERE GIVEN. PT WAS TAKEN TO CT FOR SCAN. PT REPOTED FEELING NO CHANGE. CALL LIGHT IN REACH, WILL CONTINUE TO MONITOR AND ASSESS FOR CHANGES
[2022-12-17 17:40] VITALS: BP 100/60
--- NOTE | 2022-12-17 17:50 | NUR ---
PT BP PT SITTING UP ON THE SIDE OF THE BED BP RECHECKED 100/60 HR 85 BPM. DAUGHTER AT THE BEDSIDE
[2022-12-17 20:07] VITALS: BP 99/54
--- NOTE | 2022-12-18 05:24 | NUR ---
NO CHANGES OVERNIGHT FOR MS LYNCH. SHE SLEPT WELL AFTER RECEIVING HS MEDS INCLUDING ONE NORCO AND 50MG TRAZODONE. HEPARIN RAN CONTINUALLY OVERNIGHT AT 13 UNITS/KG/HR. ONLY COMPLAINTS WERE OF CONTINUES PAIN TO NECK, AND EPISODE OF ACUTE SHARP PAIN TO RIGHT EAR THAT RESOLVED QUICKLY WITH ICE BAG. AWAITING PTT RESULT AT THIS TIME.
[2022-12-18 06:25] LABS: BASOPHILS ABSOLUTE AUTO 0.06 K/mm3 (0.00-0.23); BASOPHILS PERCENT AUTO 1 % (0-2); EOSINOPHILS ABSOLUTE AUTO 0.12 K/mm3 (0.00-0.68); EOSINOPHILS PERCENT AUTO 2 % (0-6); Hematocrit 33.8 % (33.0-51.0); Hemoglobin 11.2 g/dL (11.5-16.0); IMMATURE GRAN ABSOLUTE AUTO 0.05 K/mm3 (0.00-0.10); IMMATURE GRAN PERCENT AUTO 1 % (0-1); LYMPHOCYTES ABSOLUTE AUTO 1.08 K/mm3 (0.84-5.20); LYMPHOCYTES PERCENT AUTO 14 % (21-46); MONOCYTES ABSOLUTE AUTO 0.71 K/mm3 (0.16-1.47); MONOCYTES PERCENT AUTO 9 % (4-13); Mean Corpuscular HGB 27.9 pg (26.0-34.0); Mean Corpuscular HGB Conc 33.1 g/dL (31.5-36.5); Mean Corpuscular Volume 84 fL (80-100); Mean Platelet Volume 9.4 fL (9.1-12.4); NEUTROPHILS ABSOLUTE AUTO 5.73 K/mm3 (1.96-9.15); NEUTROPHILS PERCENT AUTO 74 % (41-73); Platelet Count 226 K/mm3 (150-400); RDW Coefficient Variation 16.1 % (11.7-14.2); RDW Standard Deviation 49.8 fL (35.1-46.3); Red Blood Cell Count 4.02 M/mm3 (3.80-5.20); White Blood Cell Count 7.75 K/mm3 (4.00-11.30)
[2022-12-18 06:56] LABS: International Normalized Ratio 2.97; Prothrombin Time Results 29.3 Sec (9.7-11.5)
[2022-12-18 08:00] VITALS: BP 99/57
[2022-12-18 15:23] VITALS: BP 103/62
--- NOTE | 2022-12-18 16:46 | NUR ---
SHIFT SUMMARY NO ACUTE CHANGES DURING SHIFT. PT ALERT AND ORIENTED, CALLS APPROPRIATELY. PT REMAINS ON RA, X 1 ASSIST WITH WALKER. HEPARIN DISCONTINUED TODAY, STARTING COUMADIN THIS EVENING. PT C/O PAIN TO NECK, MEDICATED X 2 PER EMAR. WILL CONTINUE TO MONITOR. CALL LIGHT WITHIN REACH.
[2022-12-18 19:24] VITALS: BP 102/51
[2022-12-19 05:00] VITALS: BP 116/55
[2022-12-19 05:18] LABS: International Normalized Ratio 3.25; Prothrombin Time Results 31.9 Sec (9.7-11.5)
[2022-12-19 07:20] LABS: BASOPHILS ABSOLUTE AUTO 0.04 K/mm3 (0.00-0.23); BASOPHILS PERCENT AUTO 1 % (0-2); EOSINOPHILS ABSOLUTE AUTO 0.09 K/mm3 (0.00-0.68); EOSINOPHILS PERCENT AUTO 1 % (0-6); Hematocrit 34.1 % (33.0-51.0); Hemoglobin 11.1 g/dL (11.5-16.0); IMMATURE GRAN ABSOLUTE AUTO 0.03 K/mm3 (0.00-0.10); IMMATURE GRAN PERCENT AUTO 0 % (0-1); LYMPHOCYTES ABSOLUTE AUTO 0.86 K/mm3 (0.84-5.20); LYMPHOCYTES PERCENT AUTO 11 % (21-46); MONOCYTES ABSOLUTE AUTO 0.65 K/mm3 (0.16-1.47); MONOCYTES PERCENT AUTO 8 % (4-13); Mean Corpuscular HGB 27.7 pg (26.0-34.0); Mean Corpuscular HGB Conc 32.6 g/dL (31.5-36.5); Mean Corpuscular Volume 85 fL (80-100); Mean Platelet Volume 9.6 fL (9.1-12.4); NEUTROPHILS ABSOLUTE AUTO 6.49 K/mm3 (1.96-9.15); NEUTROPHILS PERCENT AUTO 80 % (41-73); Platelet Count 227 K/mm3 (150-400); RDW Coefficient Variation 16.2 % (11.7-14.2); RDW Standard Deviation 50.4 fL (35.1-46.3); Red Blood Cell Count 4.01 M/mm3 (3.80-5.20); White Blood Cell Count 8.16 K/mm3 (4.00-11.30)
[2022-12-19 07:31] LABS: Bun/Creatinine Ratio 17.7 (12.0-20.0); Creatinine, Blood 1.58 mg/dL (0.40-1.00); Potassium, Blood 4.4 mmol/L (3.5-5.5)
--- NOTE | 2022-12-19 07:40 | NUR ---
BAKING ASSISTANT SUMMARY Taryn has been in very good spirits overnight. She did require a [place] at bedtime and upon waking for her neck pain. she is getting stronger, and now just calls because she was told she should. She is steady on her feet and can be independent in the room.
[2022-12-19 08:04] VITALS: BP 100/71
[2022-12-19 15:09] VITALS: BP 99/56
--- NOTE | 2022-12-19 18:36 | NUR ---
SHIFT SUMMARY PT IS ALERT AND ORIENTED X4. R/A 1 PERSON STANDBY ASSIST WITH FWW. FAMILY VISITED TODAY. NO ACUTE CHANGES THIS SHIFT. PT REPORTED SOME PAIN EARLIER. TREATED PER EMAR
[2022-12-19 19:10] VITALS: BP 90/65
[2022-12-20 04:11] VITALS: BP 133/87
[2022-12-20 07:17] LABS: BASOPHILS ABSOLUTE AUTO 0.04 K/mm3 (0.00-0.23); BASOPHILS PERCENT AUTO 1 % (0-2); EOSINOPHILS PERCENT AUTO 1 % (0-6); Hematocrit 33.2 % (33.0-51.0); IMMATURE GRAN ABSOLUTE AUTO 0.04 K/mm3 (0.00-0.10); IMMATURE GRAN PERCENT AUTO 1 % (0-1); LYMPHOCYTES ABSOLUTE AUTO 0.74 K/mm3 (0.84-5.20); LYMPHOCYTES PERCENT AUTO 10 % (21-46); MONOCYTES ABSOLUTE AUTO 0.61 K/mm3 (0.16-1.47); MONOCYTES PERCENT AUTO 8 % (4-13); Mean Corpuscular HGB 27.8 pg (26.0-34.0); Mean Corpuscular HGB Conc 33.1 g/dL (31.5-36.5); Mean Corpuscular Volume 84 fL (80-100); Mean Platelet Volume 9.1 fL (9.1-12.4); NEUTROPHILS ABSOLUTE AUTO 5.74 K/mm3 (1.96-9.15); NEUTROPHILS PERCENT AUTO 79 % (41-73); Platelet Count 213 K/mm3 (150-400); RDW Coefficient Variation 16.3 % (11.7-14.2); Red Blood Cell Count 3.96 M/mm3 (3.80-5.20); White Blood Cell Count 7.27 K/mm3 (4.00-11.30)
[2022-12-20 07:31] LABS: International Normalized Ratio 3.89; Prothrombin Time Results 37.8 Sec (9.7-11.5)
[2022-12-20 07:34] LABS: Bun/Creatinine Ratio 18.3 (12.0-20.0); Calcium, Blood 9.1 mg/dL (8.5-10.1); Creatinine, Blood 1.09 mg/dL (0.40-1.00); Potassium, Blood 4.1 mmol/L (3.5-5.5)
[2022-12-20 07:42] VITALS: BP 106/58
--- NOTE | 2022-12-20 07:53 | NUR ---
TERE HAD A GOOD NIGHT. SLEPT WELL, AND IS TALKING OF SEEING HER PRIMARY ABOUT HER NECK PAIN WHEN SHE IS DISCHARGED WHICH SHE IS HOPING IS TODAY. DISCOMFORT WELL MANAGED WITH ONE NORCO WHICH WAS GIVEN TWICE OVERNIGHT. INR THIS MORNING CONTINUING TO CLIMB AT 3.89
[2022-12-20 15:05] VITALS: BP 114/63
--- NOTE | 2022-12-20 16:29 | NUR ---
SHIFT SUMMARY NO ACUTE CHANGES NOTED DURING SHIFT. PT ALERT AND ORIENTED, CALLS APPROPRIATELY. PT C/O PAIN TO NECK AND EAR STILL, MEDICATED PER EMAR, HEAT/COLD THERAPY WELL. PT REMAINS ON RA, SBA IN ROOM. PLANS FOR D/C ONCE INR STABLE. WILL CONTINUE TO MONITOR. CALL LIGHT WITHIN REACH.
[2022-12-20 20:17] VITALS: BP 107/64
[2022-12-20 21:41] LABS: Albumin, Blood 2.8 g/dL (3.4-5.0); Anion Gap 8 mmol/L (6-16); Blood Urea Nitrogen 17 mg/dL (8-24); CO2, Blood 26 mmol/L (21-32); Calcium, Blood 8.9 mg/dL (8.5-10.1); Chloride, Blood 99 mmol/L (98-108); Creatinine, Blood 1.06 mg/dL (0.40-1.00); Glomerular Filtration Rate 58 (60-); Glucose, Blood 112 mg/dL (70-99); Phosphorus, Blood 2.7 mg/dL (2.5-4.9); Potassium, Blood 4.2 mmol/L (3.5-5.5); Sodium, Blood 133 mmol/L (136-145)
[2022-12-21 05:07] VITALS: BP 100/65
[2022-12-21 05:33] LABS: BASOPHILS ABSOLUTE AUTO 0.05 K/mm3 (0.00-0.23); BASOPHILS PERCENT AUTO 1 % (0-2); EOSINOPHILS ABSOLUTE AUTO 0.11 K/mm3 (0.00-0.68); EOSINOPHILS PERCENT AUTO 2 % (0-6); Hematocrit 33.5 % (33.0-51.0); Hemoglobin 11.1 g/dL (11.5-16.0); IMMATURE GRAN ABSOLUTE AUTO 0.03 K/mm3 (0.00-0.10); IMMATURE GRAN PERCENT AUTO 0 % (0-1); LYMPHOCYTES PERCENT AUTO 10 % (21-46); MONOCYTES PERCENT AUTO 8 % (4-13); Mean Corpuscular HGB 27.8 pg (26.0-34.0); Mean Corpuscular HGB Conc 33.1 g/dL (31.5-36.5); Mean Corpuscular Volume 84 fL (80-100); Mean Platelet Volume 9.4 fL (9.1-12.4); NEUTROPHILS ABSOLUTE AUTO 5.89 K/mm3 (1.96-9.15); NEUTROPHILS PERCENT AUTO 80 % (41-73); Platelet Count 226 K/mm3 (150-400); RDW Coefficient Variation 16.4 % (11.7-14.2); RDW Standard Deviation 49.8 fL (35.1-46.3); Red Blood Cell Count 3.99 M/mm3 (3.80-5.20); White Blood Cell Count 7.38 K/mm3 (4.00-11.30)
[2022-12-21 05:50] LABS: International Normalized Ratio 3.58
--- NOTE | 2022-12-21 06:29 | NUR ---
SHIFT SUMMARY PT SITTING UP ON SIDE OF BED TALKING ON PHONE DURING BEDSIDE ROUNDS- PT REQUESTED TRAZADONE PO FOR SLEEP - PT NAUSEATED AND C/O DRY HEAVES- GAVE ZOFRAN 4MG IV- PT DENIED NAUSEA AND RETURNED TO SLEEPING- 624 PT REQUESTED PAIN MEDS FOR NECK PAIN- BED LOW POSITION, CALL LIGHT WITHIN REACH
[2022-12-21 07:47] VITALS: BP 107/56
[2022-12-21 15:09] VITALS: BP 95/53
--- NOTE | 2022-12-21 18:23 | NUR ---
SHIFT SUMMARY: PT A/O X4 STANDBY ASSIST WITH WALKER. PLEASANT AND COOPERATIVE WITH CARE. PT INR 3.58 THIS AM. PT REPORTS SHE HAS NECK PAIN ON RIGHT SIDE. METHOCARBAMOL GIVEN PER ORDER AND PT REPORTED IT ONLY SLIGHTLY HELPED THE PAIN. PT HAD NO OTHER COMPLAINTS OR CONCERNS.
[2022-12-21 19:43] VITALS: BP 111/63
[2022-12-22 04:41] VITALS: BP 94/65
[2022-12-22 05:37] LABS: Prothrombin Time Results 39.4 Sec (9.7-11.5)
[2022-12-22 05:49] LABS: International Normalized Ratio 4.06
--- NOTE | 2022-12-22 06:28 | NUR ---
SHIFT SUMMARY PT SITTING UP IN BED DURING BEDSIDE ROUNDS- PT REPORTS MOBILITY IN NECK BETTER SINCE STARTING ROBAXIN TODAY- PT REQUESTED TO HAVE BEFORE SLEEP- PT TOOK ROBAXIN AND TRAZADONE WITH HS MEDICATIONS- PT SLEPT T/O NIGHT-ALL FROM LAB 0600- INR 4.06- DISCUSSED WITH REGAN RAMIREZ CHARGE NURSE RE: NOTIFICATION OF HOSPITALIST- WILL PASS ON TO DAY SHIFT NURSE- BED LOW POSITION, CALL LIGHT WITHIN REACH
[2022-12-22 08:35] VITALS: BP 111/72
[2022-12-22 15:24] VITALS: BP 98/54
--- NOTE | 2022-12-22 15:44 | NUR ---
dental hygenist rounded on patient
--- NOTE | 2022-12-22 17:24 | NUR ---
INR 4.06 TODAY, ALERT AND ORIENTED TO ALL, INDEPENDENT IN ROOM, FAMILY VISITED TODAY, DENTAL HYGENIST ROUNDED ON PATIENT, MEDICATED FOR PAIN, RE-EVAL INR TOMORROW, DR RODRIGUEZ ROUNDED TODAY, PATIENT HAS A MECHANICAL VALVE, NO ACUTE CHANGES TODAY, CALL LIGHT WITH IN REACH
[2022-12-22 19:54] VITALS: BP 107/69
[2022-12-23 04:19] VITALS: BP 119/77
[2022-12-23 05:17] LABS: Prothrombin Time Results 51.7 Sec (9.7-11.5)
[2022-12-23 06:06] LABS: International Normalized Ratio 5.42
[2022-12-23 06:45] VITALS: BP 132/79
[2022-12-23 07:17] LABS: Albumin, Blood 3.1 g/dL (3.4-5.0); Albumin/Globulin Ratio 0.8 (0.8-1.8); Bilirubin, Total 1.6 mg/dL (0.1-1.0); Bun/Creatinine Ratio 13.1 (12.0-20.0); Calcium, Blood 9.3 mg/dL (8.5-10.1); Creatinine, Blood 1.37 mg/dL (0.40-1.00); Globulin, Blood 4.1 g/dL (2.2-4.0); Potassium, Blood 4.3 mmol/L (3.5-5.5); Total Protein, Blood 7.2 g/dL (6.4-8.2)
--- NOTE | 2022-12-23 07:28 | NUR ---
0600 CALL FROM LAB RE: CRITICAL INR AND PT HAVING EPITAXIS - - CALL TO DR. MACK - NEW ORDERS PLACED- DR. RODRIGUEZ AND DR. MACK IN WITH PT DISCUSSING TX-
[2022-12-23 07:35] VITALS: BP 127/69
[2022-12-23 10:29] LABS: International Normalized Ratio 3.06
[2022-12-23 10:39] LABS: Prothrombin Time Results 30.2 Sec (9.7-11.5)
[2022-12-23 16:38] VITALS: BP 96/64
--- NOTE | 2022-12-23 18:43 | NUR ---
SHIFT SUMMARY: PT A/O X4, STANDBY ASSIST W/FWW. PT PLEASANT AND COOPERATIVE WITH CARE. PT INR STABLE AT THIS TIME. PT DID HAVE ANOTHER BLOODY NOSE THIS AFTERNOON BUT RESOLVED QUICKLY. SHE ALSO HAD N/V, ZOFRAN GIVEN BUT NOT EFFECTIVE. PT DENIED NEED FOR NAUSEA MEDICATIONS IN THE AFTERNOON AFTER SECOND DOSE OF ZOFRAN GIVEN. PT ALSO COMPLAINED OF DIARRHEA. BANANTROL GIVEN IN THE AFTERNOON AND PT REPORTS AT THIS TIME SHE HAS HAD NO FURTHER BOUTS OF DIARRHEA. IV FLUIDS STARTED AT 75ML PER HOUR PT REPORTED SHE WAS NOT DRINKING MUCH FLUIDS EITHER. PT RESTING AND WATCHING TV AT THIS TIME. PT DENIES NEED FOR FURTHER PAIN MANAGEMENT FOR NECK PAIN AT THIS TIME. CURRENT PAIN MEDICATION REGIMEN EFFECTIVE.
[2022-12-23 19:20] VITALS: BP 100/69
[2022-12-24 04:08] VITALS: BP 98/57
--- NOTE | 2022-12-24 04:51 | NUR ---
SHIFT SUMMARY PATIENT HAD NO ACUTE CHANGES. AXOX 4 AND ONE ASSIST W/FWW TO BSC. PIV REMAINS INTACT. NS INFUSING AT 75mL/HR X ONE BAG. DENIES CHEST PAIN, SOB, AND N/V. VSS/AFEBRILE. REPORTED NECK PAIN X ONE AND NORCO GIVEN PER EMAR. TRAZADONE 50 MG GIVEN PRN FOR INSOMNIA. PATIENT USING HER TABLET FIRST PART OF SHIFT PLAYING GAMES. COOPERATIVE WITH CARE. CALL LIGHT IN REACH. BED IN LOWEST POSITION. WILL CONTINUE TO MONITOR UNTIL DAY SHIFT NURSE ASSUMES CARE.
[2022-12-24 05:22] LABS: International Normalized Ratio 1.39; Prothrombin Time Results 14.3 Sec (9.7-11.5)
[2022-12-24 07:16] VITALS: BP 119/75
[2022-12-24 15:37] VITALS: BP 95/52
--- NOTE | 2022-12-24 17:12 | NUR ---
SHIFT SUMMARY PATIENT ADMITED WITH SUPRATHERAPUTIC INR. PATIENT HAS A HX OF HEPATITIS C, SUBDURAL HEMATOMA, ESENTIAL TREMORS AND METAL VALVE REQUIRING NEED FOR BLOOD THINNERS. PATIENT HAS A METAL VALVE REQUIRING BLOOD THINNERS. PATIENT IS ALERT AND ORIENTED NEEDING STAND BY ASSIST FOR AMBULATION WITH THE USE OF A 4 WHEEL WALKER. PATIENT HAS HAD NO SIGNS OF BLEEDING TODAY. INR 1.39 TODAY. PATIENT TO RETART COUMADIN TODAY. FAMILY SUPPORTIVE AND KNOWLEDGEABLE OF PATIENTS CONDITION. PATIENT CONTINUES TO HAVE NECK SORENESS. PATIENT MEDICATED 1X FOR PAIN WITH GOOD RESULTS.
[2022-12-24 19:09] VITALS: BP 106/66
[2022-12-25 05:13] LABS: International Normalized Ratio 1.25
[2022-12-25 05:39] VITALS: BP 103/61
--- NOTE | 2022-12-25 07:18 | NUR ---
ASSUMED CARE: DOCTOR AT BEDSIDE STATING HE WILL DISCHARGE HER HOME TODAY. PT ON THE PHONE WITH FAMILY NOW. NO ACUTE NEEDS OR CONCERNS AT THIS TIME.
[2022-12-25 07:54] VITALS: BP 123/73
--- NOTE | 2022-12-25 09:20 | NUR ---
PT CALLED NURSE TO BEDSIDE DUE TO VOMITING EPISODE. CALL TO DR RODRIGUEZ DUE TO PLANS FOR DISCHARGE TODAY. DR STATED HE WILL PRESCRIBE ZOFRAN AND HAVE PT MONITOR. DID NOT FEEL IT WAS RELATED TO MEDICAL STATUS. FAMILY AWARE AND AGREEABLE TO PLAN
[2022-12-25] MEDS ORDERED: ONDA4 PO (10:25)
[2022-12-25] MEDS ORDERED: VISBIOME 112.51 EACH PO (10:26)
--- NOTE | 2022-12-25 11:02 | NUR ---
DISCHARGE: PT'S IV DISCONTINUED WNL. PT'S DAUGHTER EXPRESSED CONCERN ABOUT DIARRHEA AND NAUSEA. EDUCATED HER ON BRAT DIET AND KEEPING HYDRATED. SUGGESTED IF PT GETS RAW THEN TO USE DIAPER CREAM. SUGGESTED DIET AND FLUIDS BEFORE USING OVER THE COUNTER AND MENTIONED RISK OF CONSTIPATION AND FURTHER ELECTORLYTE IMBALANCES WITH OVER THE COUNTER MEDS. SUGGESTED THAT PT BE TAKEN TO URGENT CARE IF N/V/D WORSENS AND TO CALL TO [facility]ANGE F/U ON TUESDAY. DENIES FURTHER QUESTIONS. ESCORTED OUT VIA WHEEL CHAIR BY MERCEDES
== END 2022-12-25 11:00 | disposition home or self-care (01) | DRG 813 ==
LOC: ER 11:06 → MEDS 11:07 → ENPENDDIS 12-25 10:04 → MEDS 12-25 11:00
PROVIDERS: Emergency Medicine; Family Medicine; ADMIT Internal Medicine
DX: D68.32 Hemorrhagic disorder due to extrinsic circulating anticoagulants (principal); D62 Acute posthemorrhagic anemia; I50.32 Chronic diastolic (congestive) heart failure; R78.81 Bacteremia; I13.0 Hypertensive heart and chronic kidney disease with heart failure and stage 1 through stage 4 chronic kidney disease, or unspecified chronic kidney disease; I95.9 Hypotension, unspecified; Z66 Do not resuscitate; F32.9 Major depressive disorder, single episode, unspecified; M81.0 Age-related osteoporosis without current pathological fracture; G25.0 Essential tremor; K21.9 Gastro-esophageal reflux disease without esophagitis; E03.9 Hypothyroidism, unspecified; G89.4 Chronic pain syndrome; B18.2 Chronic viral hepatitis C; G47.00 Insomnia, unspecified; E78.5 Hyperlipidemia, unspecified; F03.90 Unspecified dementia, unspecified severity, without behavioral disturbance, psychotic disturbance, mood disturbance, and anxiety; R58 Hemorrhage, not elsewhere classified; G43.909 Migraine, unspecified, not intractable, without status migrainosus; R04.0 Epistaxis; N18.9 Chronic kidney disease, unspecified; D63.1 Anemia in chronic kidney disease; B95.4 Other streptococcus as the cause of diseases classified elsewhere; T45.515A Adverse effect of anticoagulants, initial encounter; M54.2 Cervicalgia; D50.9 Iron deficiency anemia, unspecified; Z87.820 Personal history of traumatic brain injury; Z95.4 Presence of other heart-valve replacement; Z90.710 Acquired absence of both cervix and uterus; Z88.5 Allergy status to narcotic agent; Z88.8 Allergy status to other drugs, medicaments and biological substances; Z79.01 Long term (current) use of anticoagulants; Z79.899 Other long term (current) drug therapy
CPT/HCPCS: 36415; 71046; 74176; 74177; 80048; 80053; 80069; 81003; 82947; 83605; 83735; 83880; 85014; 85018; 85025; 85610; 85730; 87040; 87184; 93005; 93010; 96361; 96374-59; 96375; 96376; 99285-25; A9270; G0378; J0696; J1170; J1644; J2405; J3430; J7030; J7040; Q9967

== ENCOUNTER 2023-01-16 10:48 | Inpatient (IN) | payer OTHER ==
[~2023-01-16] VITALS: Ht 157.5 cm; Wt 50.9 kg
[~2023-01-16 10:48] MED LIST changes: +ONDA4 PO; +VISBIOME 112.51 EACH PO
[2023-01-16 11:21] LABS: BASOPHILS ABSOLUTE AUTO 0.05 K/mm3 (0.00-0.23); BASOPHILS PERCENT AUTO 1 % (0-2); EOSINOPHILS ABSOLUTE AUTO 0.13 K/mm3 (0.00-0.68); EOSINOPHILS PERCENT AUTO 2 % (0-6); Hematocrit 37.5 % (33.0-51.0); IMMATURE GRAN ABSOLUTE AUTO 0.02 K/mm3 (0.00-0.10); IMMATURE GRAN PERCENT AUTO 0 % (0-1); LYMPHOCYTES ABSOLUTE AUTO 0.59 K/mm3 (0.84-5.20); LYMPHOCYTES PERCENT AUTO 7 % (21-46); MONOCYTES PERCENT AUTO 7 % (4-13); Mean Corpuscular HGB 28.2 pg (26.0-34.0); Mean Corpuscular Volume 88 fL (80-100); Mean Platelet Volume 10.8 fL (9.1-12.4); NEUTROPHILS ABSOLUTE AUTO 6.83 K/mm3 (1.96-9.15); NEUTROPHILS PERCENT AUTO 83 % (41-73); Platelet Count 154 K/mm3 (150-400); RDW Coefficient Variation 18.3 % (11.7-14.2); RDW Standard Deviation 58.9 fL (35.1-46.3); Red Blood Cell Count 4.26 M/mm3 (3.80-5.20); White Blood Cell Count 8.22 K/mm3 (4.00-11.30)
[2023-01-16 11:37] LABS: International Normalized Ratio 3.64; Prothrombin Time Results 35.5 Sec (9.7-11.5)
[2023-01-16 12:07] LABS: Albumin, Blood 3.7 g/dL (3.4-5.0); Albumin/Globulin Ratio 0.9 (0.8-1.8); Bilirubin, Total 1.6 mg/dL (0.1-1.0); Bun/Creatinine Ratio 21.4 (12.0-20.0); Calcium, Blood 9.3 mg/dL (8.5-10.1); Creatinine, Blood 1.12 mg/dL (0.40-1.00); Globulin, Blood 3.9 g/dL (2.2-4.0); Potassium, Blood 3.5 mmol/L (3.5-5.5); Total Protein, Blood 7.6 g/dL (6.4-8.2)
[2023-01-16 12:56] LABS: Source, Urine Clean Catch
[2023-01-16 13:05] LABS: Appearance, Urine Clear (Clear); Bilirubin, Urine Neg (Neg); Blood, Urine Neg (Neg); Color, Urine Yellow (P-Yellow); Glucose Qualitative, Urine Neg (Neg); Ketones, Urine Neg (Neg); Leukocyte Esterase, Urine Neg (Neg); Nitrite, Urine Neg (Neg); Protein, Urine Neg (Neg); Urobilinogen, Urine NORM (Normal)
[2023-01-16 16:36] VITALS: BP 131/79
[2023-01-16] MEDS ORDERED: OLME20 PO (16:53)
--- NOTE | 2023-01-16 17:09 | NUR ---
Pt arrived to 333 via wheelchair from ED, she is able to stand and tx to bed indep, a/ox4, pleasant and cooperative with care, follows commands well, denies any pain, reports no bright red blood currently, her stools are like jonny last bm, dark, daughter in attendence, and is her caregiver, and manages her medications, lungs are clear t/o, dim in bases, resp even and unlabored, no cough noted, hrr, loud clicking from aortic valve, no edema noted, ppp+2, cap refill<3sec, vs stable, afebrile, piv site is clear and patent, btx4, hypoactive, voids without diff, skin c/w/d, maew, ambulates indep, instructed her to not get up on her own if experiencing any dizziness, marilyn, pt states she has a polst and that she is a DNR. oriented to room layout and call system. call light in reach.
--- NOTE | 2023-01-16 17:16 | NUR ---
asked pt about any ignitable materials, they both deny anything that can ignite.
--- NOTE | 2023-01-16 19:11 | NUR ---
pt up to br gregor, reports to investigator utility bill complaints she had a black stool, placed hat in toilet to catch the next one, no further changes this shift, call light in reach.
[2023-01-16 19:24] VITALS: BP 100/67
--- NOTE | 2023-01-17 05:38 | NUR ---
SHIFT SUMMARY 1 LOOSE BM WITH A VERY SMALL AMOUNT OF BRIGHT RED BLOOD THIS SHIFT. TYLENOL GIVEN ONCE FOR PAIN WHICH PT STATED IT WAS EFFECTIVE. Q1H FIRE SAFETY CHECKS COMPLETED WITH NO IGNITION SOURCES FOUND.
[2023-01-17 05:53] LABS: BASOPHILS ABSOLUTE AUTO 0.03 K/mm3 (0.00-0.23); BASOPHILS PERCENT AUTO 0 % (0-2); EOSINOPHILS ABSOLUTE AUTO 0.11 K/mm3 (0.00-0.68); EOSINOPHILS PERCENT AUTO 2 % (0-6); Hematocrit 35.7 % (33.0-51.0); Hemoglobin 11.5 g/dL (11.5-16.0); IMMATURE GRAN ABSOLUTE AUTO 0.02 K/mm3 (0.00-0.10); IMMATURE GRAN PERCENT AUTO 0 % (0-1); LYMPHOCYTES ABSOLUTE AUTO 0.75 K/mm3 (0.84-5.20); LYMPHOCYTES PERCENT AUTO 11 % (21-46); MONOCYTES ABSOLUTE AUTO 0.59 K/mm3 (0.16-1.47); MONOCYTES PERCENT AUTO 9 % (4-13); Mean Corpuscular HGB 27.6 pg (26.0-34.0); Mean Corpuscular HGB Conc 32.2 g/dL (31.5-36.5); Mean Corpuscular Volume 86 fL (80-100); Mean Platelet Volume 10.6 fL (9.1-12.4); NEUTROPHILS ABSOLUTE AUTO 5.47 K/mm3 (1.96-9.15); NEUTROPHILS PERCENT AUTO 78 % (41-73); Platelet Count 145 K/mm3 (150-400); RDW Coefficient Variation 18.2 % (11.7-14.2); RDW Standard Deviation 57.4 fL (35.1-46.3); Red Blood Cell Count 4.16 M/mm3 (3.80-5.20); White Blood Cell Count 6.97 K/mm3 (4.00-11.30)
[2023-01-17 06:08] LABS: International Normalized Ratio 3.39; Prothrombin Time Results 33.2 Sec (9.7-11.5)
[2023-01-17 06:18] LABS: Magnesium, Blood 2.1 mg/dL (1.6-2.4)
[2023-01-17 07:54] VITALS: BP 108/65
[2023-01-17 12:27] LABS: Albumin, Blood 3.4 g/dL (3.4-5.0); Albumin/Globulin Ratio 0.9 (0.8-1.8); Bilirubin, Total 2.1 mg/dL (0.1-1.0); Calcium, Blood 9.2 mg/dL (8.5-10.1); Creatinine, Blood 1.22 mg/dL (0.40-1.00); Globulin, Blood 3.6 g/dL (2.2-4.0); Potassium, Blood 3.6 mmol/L (3.5-5.5)
[2023-01-17 16:01] VITALS: BP 112/74
--- NOTE | 2023-01-17 19:45 | NUR ---
SHIFT SUMMARY: PT A/O X 4 STANDBY ASSIST PLEASANT AND COOPERATIVE. PT HAD TWO FORMED BM'S WITH LIGHT RED SCANT AMT OF BLOOD IN STOOL. STOOL ALSO APPEARED TO HAVE MUCOUS IN IT. PT REPORTS MILD TOLERABLE MID LOWER ABD PAIN WITH PALPATION ONLY. PT HAD NO OTHER CONCERNS. PT EDUCATED ON DANGERS OF SMOKING AND USING IGNITION MATERIALS WHILE ON OXYGEN. PT VU. PT DID NOT HAVE EVIDENCE OF USING IGNITION MATERIALS WHILE ROUNDING,
[2023-01-17 20:40] VITALS: BP 126/75
[2023-01-18 05:07] LABS: BASOPHILS ABSOLUTE AUTO 0.05 K/mm3 (0.00-0.23); BASOPHILS PERCENT AUTO 1 % (0-2); EOSINOPHILS ABSOLUTE AUTO 0.09 K/mm3 (0.00-0.68); EOSINOPHILS PERCENT AUTO 1 % (0-6); Hematocrit 37.3 % (33.0-51.0); Hemoglobin 12.3 g/dL (11.5-16.0); IMMATURE GRAN ABSOLUTE AUTO 0.03 K/mm3 (0.00-0.10); IMMATURE GRAN PERCENT AUTO 0 % (0-1); LYMPHOCYTES ABSOLUTE AUTO 0.69 K/mm3 (0.84-5.20); LYMPHOCYTES PERCENT AUTO 8 % (21-46); MONOCYTES ABSOLUTE AUTO 0.74 K/mm3 (0.16-1.47); MONOCYTES PERCENT AUTO 8 % (4-13); Mean Corpuscular HGB 27.9 pg (26.0-34.0); Mean Corpuscular Volume 85 fL (80-100); Mean Platelet Volume 10.2 fL (9.1-12.4); NEUTROPHILS ABSOLUTE AUTO 7.31 K/mm3 (1.96-9.15); NEUTROPHILS PERCENT AUTO 82 % (41-73); Platelet Count 188 K/mm3 (150-400); RDW Coefficient Variation 18.2 % (11.7-14.2); RDW Standard Deviation 56.1 fL (35.1-46.3); Red Blood Cell Count 4.41 M/mm3 (3.80-5.20); White Blood Cell Count 8.91 K/mm3 (4.00-11.30)
[2023-01-18 05:27] VITALS: BP 129/72
[2023-01-18 05:28] LABS: Anti-Xa UFH, PHA Monitoring <0.10 IU/mL
[2023-01-18 05:35] LABS: International Normalized Ratio 4.02
[2023-01-18 05:45] LABS: Bun/Creatinine Ratio 15.6 (12.0-20.0); Calcium, Blood 9.3 mg/dL (8.5-10.1); Creatinine, Blood 1.22 mg/dL (0.40-1.00); Potassium, Blood 3.5 mmol/L (3.5-5.5)
--- NOTE | 2023-01-18 06:35 | NUR ---
PT REPORTS FREQUENT BM'S THROUGHOUT THE NIGHT. APPEAR FIRM, BROWN, SMALL EACH TIME WITH SMALL AMOUNTS OF BLOOD PRESENT. INR INCREASED COMPARED TO 01/17 LAB DRAW. PT AO, PLEASANT, VSS, INDEPENDENT.
[2023-01-18 07:24] VITALS: BP 127/74
[2023-01-18 15:40] VITALS: BP 121/68
--- NOTE | 2023-01-18 17:37 | NUR ---
PT IS A/OX4, PLEASANT AND COOPERATIVE. THE IS UP IND IN HER ROOM. THE PT CONTINUES TO REPORT SMALL AMOUNT OF BECK BLOOD IN HER STOOL. PT REPORTS RIGHT SIDE ABD PAIN. THE PT WAS MEDICATED FOR PAIN AND NAUSEA X1 SO FAR THIS SHIFT. PT APPEARS TO BE BREATHING EASILY ON RA CALL LIGHT IN REACH. WILL CONTINUE TO MONITOR AND ASSESS FOR CHANGES
[2023-01-19 05:34] LABS: BASOPHILS ABSOLUTE AUTO 0.05 K/mm3 (0.00-0.23); BASOPHILS PERCENT AUTO 1 % (0-2); EOSINOPHILS ABSOLUTE AUTO 0.08 K/mm3 (0.00-0.68); EOSINOPHILS PERCENT AUTO 1 % (0-6); Hematocrit 35.8 % (33.0-51.0); Hemoglobin 11.7 g/dL (11.5-16.0); IMMATURE GRAN ABSOLUTE AUTO 0.03 K/mm3 (0.00-0.10); IMMATURE GRAN PERCENT AUTO 0 % (0-1); LYMPHOCYTES PERCENT AUTO 10 % (21-46); MONOCYTES ABSOLUTE AUTO 0.77 K/mm3 (0.16-1.47); MONOCYTES PERCENT AUTO 8 % (4-13); Mean Corpuscular HGB 27.9 pg (26.0-34.0); Mean Corpuscular HGB Conc 32.7 g/dL (31.5-36.5); Mean Corpuscular Volume 85 fL (80-100); NEUTROPHILS ABSOLUTE AUTO 8.04 K/mm3 (1.96-9.15); NEUTROPHILS PERCENT AUTO 81 % (41-73); Platelet Count 170 K/mm3 (150-400); RDW Coefficient Variation 18.2 % (11.7-14.2); RDW Standard Deviation 56.7 fL (35.1-46.3); Red Blood Cell Count 4.19 M/mm3 (3.80-5.20); White Blood Cell Count 9.97 K/mm3 (4.00-11.30)
--- NOTE | 2023-01-19 05:36 | NUR ---
AWAITING DECREASE IN INR FOR PENDING COLONOSCOPY. NO CHANGE TO PATIENT CONDITION, MULTIPLE BM'S THAT ARE FORMED, SMALL, BROWN WITH SOME BLOOD PRESENT. AO, INDEPENDENT, PLEASANT, VSS.
[2023-01-19 05:54] LABS: Bun/Creatinine Ratio 11.4 (12.0-20.0); Creatinine, Blood 1.32 mg/dL (0.40-1.00); Potassium, Blood 3.7 mmol/L (3.5-5.5)
[2023-01-19 05:58] LABS: International Normalized Ratio 4.24
[2023-01-19 08:34] VITALS: BP 121/67
[2023-01-19 15:40] VITALS: BP 99/56
--- NOTE | 2023-01-19 16:29 | NUR ---
PT IS AL/OX4, PLEASANT AND COOPERATIVE. THE PT IS UP IND IN HER ROOM. THE PT APPEARS TO BE BREATHING EASILY ON RA AT THIS TIME. PT CONTINUES TO REPORT SOME BLOOD TINGED BM'S. PT WAS MEDICATED FOR RIGHT SIDE ABD PAIN X1 SO FAR TODAY. CALL, LIGHT IN REACH, WILL CONTINUE TO MONITOR AND ASSESS FOR CHANGES
[2023-01-19 19:50] VITALS: BP 98/59
[2023-01-20] VITALS (7 sets, daily range): BP systolic 97–143; BP diastolic 56–89
[2023-01-20 05:48] LABS: BASOPHILS ABSOLUTE AUTO 0.04 K/mm3 (0.00-0.23); BASOPHILS PERCENT AUTO 1 % (0-2); EOSINOPHILS ABSOLUTE AUTO 0.15 K/mm3 (0.00-0.68); EOSINOPHILS PERCENT AUTO 2 % (0-6); Hematocrit 37.5 % (33.0-51.0); Hemoglobin 12.1 g/dL (11.5-16.0); IMMATURE GRAN ABSOLUTE AUTO 0.03 K/mm3 (0.00-0.10); IMMATURE GRAN PERCENT AUTO 0 % (0-1); LYMPHOCYTES ABSOLUTE AUTO 0.76 K/mm3 (0.84-5.20); LYMPHOCYTES PERCENT AUTO 11 % (21-46); MONOCYTES ABSOLUTE AUTO 0.53 K/mm3 (0.16-1.47); MONOCYTES PERCENT AUTO 7 % (4-13); Mean Corpuscular HGB 27.6 pg (26.0-34.0); Mean Corpuscular HGB Conc 32.3 g/dL (31.5-36.5); Mean Corpuscular Volume 86 fL (80-100); Mean Platelet Volume 9.9 fL (9.1-12.4); NEUTROPHILS ABSOLUTE AUTO 5.74 K/mm3 (1.96-9.15); NEUTROPHILS PERCENT AUTO 79 % (41-73); Platelet Count 166 K/mm3 (150-400); RDW Coefficient Variation 17.9 % (11.7-14.2); RDW Standard Deviation 56.3 fL (35.1-46.3); Red Blood Cell Count 4.38 M/mm3 (3.80-5.20); White Blood Cell Count 7.25 K/mm3 (4.00-11.30)
[2023-01-20 06:17] LABS: Prothrombin Time Results 39.8 Sec (9.7-11.5)
[2023-01-20 06:22] LABS: Bun/Creatinine Ratio 13.4 (12.0-20.0); Calcium, Blood 9.6 mg/dL (8.5-10.1); Creatinine, Blood 1.34 mg/dL (0.40-1.00); Potassium, Blood 3.4 mmol/L (3.5-5.5)
--- NOTE | 2023-01-20 06:22 | NUR ---
BOWEL PREP INITIATED LAST NIGHT. PT IS DRINKING PREP VERY SLOWLY. ENCOURAGED AND EDUCATED ABOUT INCREASED INTAKE OF PREP. PT STATES BM'S ARE CLEARING. OTHERWISE UNEVENTFUL NIGHT. PENDING COLONOSCOPY LATER TODAY.
[2023-01-20 06:42] LABS: International Normalized Ratio 4.11
--- NOTE | 2023-01-20 17:57 | NUR ---
01/20/23 1757 Josselin Marrero History, Chart, Medications and Allergies reviewed before start of procedure. 3-LEAD EKG REVIEWED WITH PHYSICIAN PRIOR TO START OF PROCEDURE. MONITOR INTACT WITH CONTINUOUS PULSE OXIMETRY, CONTINUOUS END TITAL CO2, AND INTERMITTENT BLOOD PRESSURE. O2 VIA POM@10L INTACT THROUGHOUT SEDATION/PROCEDURE.See Anesthesia record FOR DETAILS.
--- NOTE | 2023-01-20 18:06 | NUR ---
#20 PIV TO [facility] PATENT. DRSG. Rajput/D/Justin.
--- NOTE | 2023-01-20 18:08 | NUR ---
Into [facility] via [facility]. History, Chart, Medications and Allergies reviewed before start of procedure. Patient confirms NPO status and agrees with scheduled surgery.Adequate prep for colonoscopy confirmed.Pt has mechanical valve. Lungs clear T/O to Auscultation.
--- NOTE | 2023-01-20 19:05 | NUR ---
SHIFT SUMMARY PATIENT IS ALERT AND ORIENTED. PATIENT HAS HAD NO ACUTE EVENTS THIS SHIFT. VITAL SIGNS REVIEWED. PATIENT HAD COLONSCOPY DONE TODAY. NO BLEEDING SITES FOUND. PATIENT HAS ARRIVED BACK TO HER ROOM WITH DAUGHTER ACCOMPANYING PATIENT. PATIENT HAS NOT COMPLAINED OF PAIN, NAUSEA, SOB OR VOMITTING THIS SHIFT. NOC NURSE HAS BEEN UPDATED ON PATIENT STATUS.
[2023-01-21 02:04] VITALS: BP 115/73
--- NOTE | 2023-01-21 06:35 | NUR ---
PATIENT REMAINS ALERT AND ORIENTED X4, COOPERATIVE WITH CARE. NO REPORTS OF BLOOD IN STOOLS THIS SHIFT, HOWEVER PATIENT WAS UP TO BATHROOM FOR MOST OF THE NIGHT AND DID NOT REST MUCH. VSS THROUGHOUT THE NIGHT. ADVANCE DIET TOLERATED ORDER PLACED PER SURGICAL NOTE, AND PATIENT IS TOLERATING A FULL LIQUID DIET. NO OTHER ISSUES TO REPORT.
[2023-01-21 06:56] LABS: International Normalized Ratio 4.02
[2023-01-21 07:30] VITALS: BP 100/55
[2023-01-21 15:45] VITALS: BP 121/78
--- NOTE | 2023-01-21 18:09 | NUR ---
SUMMARY- NO ACUTE EVENTS THIS SHIFT. PT'S RIGHT HIP PAIN WELL CONTROLLED WITH EMAR PAIN MEDS. INDEPENDENT IN ROOM. PT DENIES ANY BLOOD IN STOOL THIS SHIFT. RN ENSURED FIRE SAFETY EVERY HOUR THIS SHIFT DURING ROUNDS.
[2023-01-21 19:54] VITALS: BP 110/67
--- NOTE | 2023-01-22 04:01 | NUR ---
SHIFT SUMMARY: TERE IS A&OX4. VSS, NO ACUTE EVENTS OVERNIGHT. SHE IS INDEPENDENT IN THE ROOM, DENIES ANY DARK OR BLOODY STOOLS. SHE REPORTS URINATING WITHOUT DIFFICULTY, IS TOLERATING THE FULL LIQUID DIET WELL, AND REPORTS ADEQUATE PAIN CONTROL WITH 5 MG OF ROXICODONE. IV TO L AC PATENT. SHE IS LYING IN BED WITH THE CALL LIGHT IN REACH. WCTM UNTIL REPORT IS GIVEN TO DAY SHIFT RN.
[2023-01-22 05:16] VITALS: BP 100/60
[2023-01-22 06:20] LABS: BASOPHILS ABSOLUTE AUTO 0.04 K/mm3 (0.00-0.23); BASOPHILS PERCENT AUTO 1 % (0-2); EOSINOPHILS ABSOLUTE AUTO 0.19 K/mm3 (0.00-0.68); EOSINOPHILS PERCENT AUTO 4 % (0-6); Hematocrit 35.8 % (33.0-51.0); Hemoglobin 11.4 g/dL (11.5-16.0); IMMATURE GRAN ABSOLUTE AUTO 0.01 K/mm3 (0.00-0.10); IMMATURE GRAN PERCENT AUTO 0 % (0-1); LYMPHOCYTES ABSOLUTE AUTO 0.88 K/mm3 (0.84-5.20); LYMPHOCYTES PERCENT AUTO 18 % (21-46); MONOCYTES ABSOLUTE AUTO 0.49 K/mm3 (0.16-1.47); MONOCYTES PERCENT AUTO 10 % (4-13); Mean Corpuscular HGB 27.7 pg (26.0-34.0); Mean Corpuscular HGB Conc 31.8 g/dL (31.5-36.5); Mean Corpuscular Volume 87 fL (80-100); Mean Platelet Volume 10.5 fL (9.1-12.4); NEUTROPHILS ABSOLUTE AUTO 3.24 K/mm3 (1.96-9.15); NEUTROPHILS PERCENT AUTO 67 % (41-73); Platelet Count 164 K/mm3 (150-400); RDW Coefficient Variation 17.6 % (11.7-14.2); RDW Standard Deviation 56.2 fL (35.1-46.3); Red Blood Cell Count 4.12 M/mm3 (3.80-5.20); White Blood Cell Count 4.85 K/mm3 (4.00-11.30)
[2023-01-22 06:59] LABS: International Normalized Ratio 3.14; Prothrombin Time Results 30.9 Sec (9.7-11.5)
[2023-01-22 07:50] VITALS: BP 119/82
[2023-01-22 10:55] LABS: Albumin, Blood 3.3 g/dL (3.4-5.0); Albumin/Globulin Ratio 0.9 (0.8-1.8); Bilirubin, Total 1.7 mg/dL (0.1-1.0); Bun/Creatinine Ratio 13.3 (12.0-20.0); Calcium, Blood 9.5 mg/dL (8.5-10.1); Creatinine, Blood 1.2 mg/dL (0.40-1.00); Globulin, Blood 3.6 g/dL (2.2-4.0); Potassium, Blood 3.4 mmol/L (3.5-5.5); Total Protein, Blood 6.9 g/dL (6.4-8.2)
--- NOTE | 2023-01-22 15:16 | NUR ---
DC- PT DC AT 1320 IN STABLE CONDITION WITH DAUGHTER WITH ALL BELONGINGS. ALL DISCHARGE PAPERWORK DISCUSSED IN DETAIL.
--- NOTE | 2023-01-22 17:11 | NUR ---
FIRE SAFETY ENSURED EVERY HOUR DURING ROUNDS.
== END 2023-01-22 13:27 | disposition home or self-care (01) | DRG 378 ==
LOC: ER 10:48 → MEDS 14:04 → ENPENDDIS 01-22 13:04 → MEDS 01-22 13:27
PROVIDERS: Emergency Medicine; Family Medicine; Internal Medicine Gastroenterology; ADMIT Internal Medicine
PROC: 0DBP8ZX Excision of Rectum, Via Natural or Artificial Opening Endoscopic, Diagnostic (ICD-10-PCS; 2023-01-20)
PROC: 0DBF8ZX Excision of Right Large Intestine, Via Natural or Artificial Opening Endoscopic, Diagnostic (ICD-10-PCS; 2023-01-20)
PROC: 0DBG8ZX Excision of Left Large Intestine, Via Natural or Artificial Opening Endoscopic, Diagnostic (ICD-10-PCS; principal; 2023-01-20 18:00)
DX: K62.5 Hemorrhage of anus and rectum (principal); D62 Acute posthemorrhagic anemia; I13.0 Hypertensive heart and chronic kidney disease with heart failure and stage 1 through stage 4 chronic kidney disease, or unspecified chronic kidney disease; R04.2 Hemoptysis; I50.32 Chronic diastolic (congestive) heart failure; B18.2 Chronic viral hepatitis C; Z66 Do not resuscitate; G47.00 Insomnia, unspecified; K21.9 Gastro-esophageal reflux disease without esophagitis; D50.9 Iron deficiency anemia, unspecified; D63.1 Anemia in chronic kidney disease; G25.0 Essential tremor; M81.0 Age-related osteoporosis without current pathological fracture; R79.1 Abnormal coagulation profile; K64.4 Residual hemorrhoidal skin tags; E03.9 Hypothyroidism, unspecified; F03.90 Unspecified dementia, unspecified severity, without behavioral disturbance, psychotic disturbance, mood disturbance, and anxiety; I25.10 Atherosclerotic heart disease of native coronary artery without angina pectoris; I08.1 Rheumatic disorders of both mitral and tricuspid valves; I27.20 Pulmonary hypertension, unspecified; G89.4 Chronic pain syndrome; F32.9 Major depressive disorder, single episode, unspecified; E78.5 Hyperlipidemia, unspecified; N18.30 Chronic kidney disease, stage 3 unspecified; Z95.2 Presence of prosthetic heart valve; Z95.1 Presence of aortocoronary bypass graft; Z90.710 Acquired absence of both cervix and uterus; Z87.820 Personal history of traumatic brain injury; Z88.8 Allergy status to other drugs, medicaments and biological substances; Z88.5 Allergy status to narcotic agent; Z79.899 Other long term (current) drug therapy; Z79.01 Long term (current) use of anticoagulants; Z79.52 Long term (current) use of systemic steroids
CPT/HCPCS: 36415; 71045; 80048; 80053; 81003; 83735; 85025; 85520; 85610; 85730; 86850; 86900; 86901; 88305; 93005; 93010; 93306; 96374; 96376; 99285-25; A9270; C9113; G0378; J7120

== ENCOUNTER 2023-02-05 11:35 | Emergency (ER) | payer OTHER ==
[~2023-02-05] VITALS: Ht 157.5 cm; Wt 52.6 kg
[2023-02-05 12:28] LABS: BASOPHILS ABSOLUTE AUTO 0.04 K/mm3 (0.00-0.23); BASOPHILS PERCENT AUTO 1 % (0-2); EOSINOPHILS ABSOLUTE AUTO 0.12 K/mm3 (0.00-0.68); EOSINOPHILS PERCENT AUTO 2 % (0-6); Hematocrit 34.6 % (33.0-51.0); Hemoglobin 10.8 g/dL (11.5-16.0); IMMATURE GRAN ABSOLUTE AUTO 0.02 K/mm3 (0.00-0.10); IMMATURE GRAN PERCENT AUTO 0 % (0-1); LYMPHOCYTES ABSOLUTE AUTO 0.66 K/mm3 (0.84-5.20); LYMPHOCYTES PERCENT AUTO 9 % (21-46); MONOCYTES ABSOLUTE AUTO 0.56 K/mm3 (0.16-1.47); MONOCYTES PERCENT AUTO 8 % (4-13); Mean Corpuscular HGB 27.6 pg (26.0-34.0); Mean Corpuscular HGB Conc 31.2 g/dL (31.5-36.5); Mean Corpuscular Volume 88 fL (80-100); Mean Platelet Volume 10.8 fL (9.1-12.4); NEUTROPHILS ABSOLUTE AUTO 5.81 K/mm3 (1.96-9.15); NEUTROPHILS PERCENT AUTO 80 % (41-73); Platelet Count 138 K/mm3 (150-400); RDW Coefficient Variation 18.6 % (11.7-14.2); RDW Standard Deviation 59.7 fL (35.1-46.3); Red Blood Cell Count 3.92 M/mm3 (3.80-5.20); White Blood Cell Count 7.21 K/mm3 (4.00-11.30)
[2023-02-05 12:48] LABS: Albumin, Blood 3.7 g/dL (3.4-5.0); Bun/Creatinine Ratio 19.2 (12.0-20.0); Calcium, Blood 9.2 mg/dL (8.5-10.1); Creatinine, Blood 1.46 mg/dL (0.40-1.00); Globulin, Blood 3.6 g/dL (2.2-4.0); Potassium, Blood 4.1 mmol/L (3.5-5.5); Total Protein, Blood 7.3 g/dL (6.4-8.2)
[2023-02-05 15:18] LABS: International Normalized Ratio 1.19; Prothrombin Time Results 12.4 Sec (9.7-11.5)
[2023-02-05 16:10] VITALS: BP 131/70
== END 2023-02-05 16:11 | disposition home or self-care (01) ==
LOC: ER 11:35
PROVIDERS: Emergency Medicine
DX: K62.5 Hemorrhage of anus and rectum (principal); Z79.899 Other long term (current) drug therapy; Z79.01 Long term (current) use of anticoagulants; Z95.2 Presence of prosthetic heart valve
CPT/HCPCS: 80053; 85025; 85610; 86850; 86900; 86901; 99283

== ENCOUNTER → 2023-02-23 | Outpatient (CLI) | payer OTHER ==
[2023-02-23 11:11] LABS: BASOPHILS ABSOLUTE AUTO 0.04 K/mm3 (0.00-0.23); BASOPHILS PERCENT AUTO 1 % (0-2); EOSINOPHILS ABSOLUTE AUTO 0.09 K/mm3 (0.00-0.68); EOSINOPHILS PERCENT AUTO 2 % (0-6); Hematocrit 38.8 % (33.0-51.0); Hemoglobin 12.2 g/dL (11.5-16.0); IMMATURE GRAN ABSOLUTE AUTO 0.02 K/mm3 (0.00-0.10); IMMATURE GRAN PERCENT AUTO 0 % (0-1); LYMPHOCYTES ABSOLUTE AUTO 0.69 K/mm3 (0.84-5.20); LYMPHOCYTES PERCENT AUTO 12 % (21-46); MONOCYTES PERCENT AUTO 7 % (4-13); Mean Corpuscular HGB Conc 31.4 g/dL (31.5-36.5); Mean Corpuscular Volume 89 fL (80-100); NEUTROPHILS ABSOLUTE AUTO 4.65 K/mm3 (1.96-9.15); NEUTROPHILS PERCENT AUTO 79 % (41-73); RDW Coefficient Variation 19.1 % (11.7-14.2); RDW Standard Deviation 62.4 fL (35.1-46.3); Red Blood Cell Count 4.35 M/mm3 (3.80-5.20); White Blood Cell Count 5.89 K/mm3 (4.00-11.30)
[2023-02-23 11:15] LABS: Bun/Creatinine Ratio 19.8 (12.0-20.0); Calcium, Blood 9.5 mg/dL (8.5-10.1); Creatinine, Blood 1.31 mg/dL (0.40-1.00); Potassium, Blood 3.1 mmol/L (3.5-5.5)
[2023-02-23 11:57] LABS: Mean Platelet Volume 10.8 fL (9.1-12.4); Platelet Count 132 K/mm3 (150-400)
== END ==
LOC: LAB SHORT 11:04 → LAB 11:04
PROVIDERS: Physician Assistant
DX: K62.5 Hemorrhage of anus and rectum (principal)
CPT/HCPCS: 80048; 85025

== ENCOUNTER 2023-04-12 22:22 | Emergency (ER) | payer OTHER ==
[~2023-04-12] VITALS: Ht 157.5 cm; Wt 54.4 kg
[2023-04-13 00:03] LABS: International Normalized Ratio 2.74; Prothrombin Time Results 27.2 Sec (9.7-11.5)
[2023-04-13 04:36] LABS: Hematocrit 40.3 % (33.0-51.0); Hemoglobin 12.8 g/dL (11.5-16.0)
[2023-04-13 04:39] LABS: Influenza A, PCR NEGATIVE (NEGATIVE); Influenza B, PCR NEGATIVE (NEGATIVE); Resp Syncytial Virus, PCR NEGATIVE (NEGATIVE); SARS-Cov-2 (COVID-19) PCR, MMC NEGATIVE (NEGATIVE)
[2023-04-13] MEDS ORDERED: Flonase 0.05% N16 GM (05:36)
[2023-04-13 05:43] VITALS: BP 104/64
== END 2023-04-13 05:43 | disposition home or self-care (01) ==
LOC: ER 22:22
PROVIDERS: Emergency Medicine; Physician Assistant
DX: R04.0 Epistaxis (principal); Z20.822 Contact with and (suspected) exposure to COVID-19; Z88.5 Allergy status to narcotic agent; Z88.6 Allergy status to analgesic agent; Z79.899 Other long term (current) drug therapy; Z79.01 Long term (current) use of anticoagulants; I11.0 Hypertensive heart disease with heart failure; I50.9 Heart failure, unspecified; K21.9 Gastro-esophageal reflux disease without esophagitis; E03.9 Hypothyroidism, unspecified
CPT/HCPCS: 0241U; 85014; 85018; 85610; 87430; 99283

== ENCOUNTER 2023-08-20 11:55 | Inpatient (IN) | payer OTHER ==
[~2023-08-20] VITALS: Ht 157.5 cm; Wt 54.4 kg
[~2023-08-20 11:55] MED LIST changes: +Flonase 0.05% N16 GM
[2023-08-20 12:57] LABS: BASOPHILS ABSOLUTE AUTO 0.02 K/mm3 (0.00-0.23); BASOPHILS PERCENT AUTO 0 % (0-2); EOSINOPHILS ABSOLUTE AUTO 0.12 K/mm3 (0.00-0.68); EOSINOPHILS PERCENT AUTO 2 % (0-6); Hematocrit 41.1 % (33.0-51.0); Hemoglobin 13.2 g/dL (11.5-16.0); IMMATURE GRAN ABSOLUTE AUTO 0.01 K/mm3 (0.00-0.10); IMMATURE GRAN PERCENT AUTO 0 % (0-1); LYMPHOCYTES ABSOLUTE AUTO 0.53 K/mm3 (0.84-5.20); LYMPHOCYTES PERCENT AUTO 10 % (21-46); MONOCYTES ABSOLUTE AUTO 0.49 K/mm3 (0.16-1.47); MONOCYTES PERCENT AUTO 10 % (4-13); Mean Corpuscular HGB 28.9 pg (26.0-34.0); Mean Corpuscular HGB Conc 32.1 g/dL (31.5-36.5); Mean Corpuscular Volume 90 fL (80-100); Mean Platelet Volume 10.7 fL (9.1-12.4); NEUTROPHILS ABSOLUTE AUTO 3.96 K/mm3 (1.96-9.15); NEUTROPHILS PERCENT AUTO 77 % (41-73); Platelet Count 105 K/mm3 (150-400); RDW Coefficient Variation 18.5 % (11.7-14.2); RDW Standard Deviation 60.3 fL (35.1-46.3); Red Blood Cell Count 4.57 M/mm3 (3.80-5.20); White Blood Cell Count 5.13 K/mm3 (4.00-11.30)
[2023-08-20] MEDS ORDERED: CALCIUM CARBON500 M1 PO (13:03)
[2023-08-20] MEDS ORDERED: ZYRTEC10 M1 PO (13:03)
[2023-08-20 13:13] LABS: Albumin, Blood 3.6 g/dL (3.4-5.0); Albumin/Globulin Ratio 0.8 (0.8-1.8); Calcium, Blood 9.5 mg/dL (8.5-10.1); Creatinine, Blood 1.6 mg/dL (0.40-1.00); Globulin, Blood 4.3 g/dL (2.2-4.0); Potassium, Blood 4.2 mmol/L (3.5-5.5); Total Protein, Blood 7.9 g/dL (6.4-8.2)
[2023-08-20 14:49] LABS: International Normalized Ratio 2.74; Prothrombin Time Results 27.2 Sec (9.7-11.5)
[2023-08-20] MEDS ORDERED: Furosemide 10 MG/ML 4ML Vial IV ONE (17:00)
[2023-08-20] MEDS ORDERED: FLU VACC QS2023-24(6MOS UP)/PF 60 MCG/0.5 ML SYRINGE IM SCH (17:10)
[2023-08-20] MEDS ORDERED: HYDROcodone 5-APAP 325 TAB PO PRN (17:15)
[2023-08-20] MEDS ORDERED: TraZODone HCl 50 MG Tab PO PRN (17:15)
[2023-08-20] MEDS ORDERED: Warfarin Sodium 3 MG Tab PO SCH (18:00)
[2023-08-20 19:52] VITALS: BP 113/62
[2023-08-20] MEDS ORDERED: PAROEX473 ML MM (20:42)
[2023-08-20] MEDS ORDERED: Gabapentin 300 MG Cap PO SCH (21:00)
[2023-08-20] MEDS ORDERED: Fluticasone 0.05% Nasal Spray SCH (21:00)
[2023-08-20] MEDS ORDERED: Bumetanide 0.25 MG/ML 10ML Vial IV SCH (21:40)
--- NOTE | 2023-08-20 21:40 | NUR ---
IN AT BEDSIDE. DR. PENA ORDERED TO STOP ORAL DIURETICS AND TO START IV BUMEX BID WITH FIRST DOSE TONIGHT-SEE ORDERS/EMAR.
[2023-08-21 02:55] VITALS: BP 105/62
--- NOTE | 2023-08-21 04:31 | NUR ---
SHIFT SUMMARY. PATIENT IS ALERT AND ORIENTED. PATIENT IS ABLE TO MAKE HER NEEDS KNOWN. PATIENT UP INDEPENDENTLY WITH FOUR WHEELED WALKER TO BATHROOM. PATIENT DIURESED THIS EVENING PER -SEE ORDERS. PATIENT DENIES PAIN OR NEEDS AT THIS TIME. PATIENT TAKES MEDS WHOLE WITH WATER. PATIENT ON RA. PATIENT BED IS LOCKED IN THE LOWEST POSITION WITH CALL LIGHT IN REACH. NO S/S OF DISTRESS NOTED AT THIS TIME. CARE IS ONGOING.
[2023-08-21 04:51] LABS: BASOPHILS ABSOLUTE AUTO 0.03 K/mm3 (0.00-0.23); BASOPHILS PERCENT AUTO 1 % (0-2); EOSINOPHILS ABSOLUTE AUTO 0.11 K/mm3 (0.00-0.68); EOSINOPHILS PERCENT AUTO 2 % (0-6); Hematocrit 40.2 % (33.0-51.0); Hemoglobin 12.9 g/dL (11.5-16.0); IMMATURE GRAN ABSOLUTE AUTO 0.01 K/mm3 (0.00-0.10); IMMATURE GRAN PERCENT AUTO 0 % (0-1); LYMPHOCYTES ABSOLUTE AUTO 0.85 K/mm3 (0.84-5.20); LYMPHOCYTES PERCENT AUTO 18 % (21-46); MONOCYTES ABSOLUTE AUTO 0.53 K/mm3 (0.16-1.47); MONOCYTES PERCENT AUTO 11 % (4-13); Mean Corpuscular HGB 28.4 pg (26.0-34.0); Mean Corpuscular HGB Conc 32.1 g/dL (31.5-36.5); Mean Corpuscular Volume 88 fL (80-100); NEUTROPHILS ABSOLUTE AUTO 3.26 K/mm3 (1.96-9.15); NEUTROPHILS PERCENT AUTO 68 % (41-73); Platelet Count 102 K/mm3 (150-400); RDW Coefficient Variation 18.2 % (11.7-14.2); RDW Standard Deviation 58.4 fL (35.1-46.3); Red Blood Cell Count 4.55 M/mm3 (3.80-5.20); White Blood Cell Count 4.79 K/mm3 (4.00-11.30)
[2023-08-21 05:19] LABS: International Normalized Ratio 2.63; Prothrombin Time Results 26.1 Sec (9.7-11.5)
[2023-08-21 05:57] LABS: Albumin, Blood 3.5 g/dL (3.4-5.0); Albumin/Globulin Ratio 0.8 (0.8-1.8); Bilirubin, Total 3.6 mg/dL (0.1-1.0); Bun/Creatinine Ratio 28.4 (12.0-20.0); Calcium, Blood 9.6 mg/dL (8.5-10.1); Creatinine, Blood 1.48 mg/dL (0.40-1.00); Globulin, Blood 4.2 g/dL (2.2-4.0); Magnesium, Blood 2.7 mg/dL (1.6-2.4); Phosphorus, Blood 4.1 mg/dL (2.5-4.9); Potassium, Blood 3.7 mmol/L (3.5-5.5); Total Protein, Blood 7.7 g/dL (6.4-8.2)
[2023-08-21] MEDS ORDERED: Omeprazole 20 MG CapCR PO SCH (06:00)
[2023-08-21 07:27] VITALS: BP 129/79
[2023-08-21] MEDS ORDERED: Calcium Carbonate 1,250 MG TABLET PO SCH (09:00)
[2023-08-21] MEDS ORDERED: Torsemide 20 MG TAB PO SCH (09:00)
[2023-08-21] MEDS ORDERED: Estradiol 1 MG Tab PO SCH (09:00)
[2023-08-21] MEDS ORDERED: Ferrous Sulfate 325 MG Tab PO SCH (09:00)
[2023-08-21] MEDS ORDERED: Sertraline HCl 50 MG Tab PO SCH (09:00)
[2023-08-21] MEDS ORDERED: Zinc Sulfate 220 MG Cap (Provides 50MG) PO SCH (09:00)
[2023-08-21] MEDS ORDERED: Metoprolol Succinate 25 MG TABCR PO SCH (09:00)
[2023-08-21 10:02] VITALS: BP 116/70
[2023-08-21] MEDS ORDERED: Acetaminophen 325 MG TABLET PO PRN ×2 (13:10→13:15)
[2023-08-21 15:34] VITALS: BP 121/76
--- NOTE | 2023-08-21 18:44 | NUR ---
PATIENT IS ALERT AND ORIENTED AND COOPERATIVE WITH CARE. THE PATIENT'S DAUGHTER WAS HERE TODAY WHILE DR. RODRIGUEZ WAS AT THE BEDSIDE. DR. RODRIGUEZ SHARED THE RESULTS OF THE ECHO WITH THE PATIENT AND HER DAUGHTER. THE PATIENT HAS BEEN INDEPENDENT TO THE BATHROOM ALL SHIFT. ON RA. ON 1L FLUID RESTRICTION. WILL CONTINUE TO MONITOR
[2023-08-21 19:21] VITALS: BP 112/67
[2023-08-21] MEDS ORDERED: Chlorhexidine Mouth Care 15 ML UDC MT SCH (20:00)
[2023-08-22 03:10] VITALS: BP 106/73
--- NOTE | 2023-08-22 04:41 | NUR ---
SHIFT SUMMARY PT A&OX4 AND ANSWERS QUESTIONS APPROPRIATELY. PT RECEIVED HS MEDICATIONS AND WAS CONTINENT TO THE SBA WITH A FWW. PT SLEPT THROUGH MOST OF SHIFT WITH EYES SHUT AND RESPIRATIONS UNLABORED AND EVEN. PT HAS AN IRREGULAR HR WHEN AUSCALTED, PT HAS EXTENSIVE CARDIAC HX. VSS. PT DENIES CP OR SOB. NO ACUTE EVENTS DURING SHIFT. PT LEFT IN A POSITION OF SAFETY WITH FALL PRECAUTIONS IN PLACE AND CALL LIGHT IN REACH.
[2023-08-22 05:53] LABS: BASOPHILS ABSOLUTE AUTO 0.03 K/mm3 (0.00-0.23); BASOPHILS PERCENT AUTO 1 % (0-2); EOSINOPHILS ABSOLUTE AUTO 0.08 K/mm3 (0.00-0.68); EOSINOPHILS PERCENT AUTO 2 % (0-6); Hemoglobin 13.4 g/dL (11.5-16.0); IMMATURE GRAN PERCENT AUTO 0 % (0-1); LYMPHOCYTES ABSOLUTE AUTO 0.84 K/mm3 (0.84-5.20); LYMPHOCYTES PERCENT AUTO 18 % (21-46); MONOCYTES ABSOLUTE AUTO 0.43 K/mm3 (0.16-1.47); MONOCYTES PERCENT AUTO 9 % (4-13); Mean Corpuscular HGB 28.3 pg (26.0-34.0); Mean Corpuscular HGB Conc 31.9 g/dL (31.5-36.5); Mean Corpuscular Volume 89 fL (80-100); NEUTROPHILS ABSOLUTE AUTO 3.21 K/mm3 (1.96-9.15); NEUTROPHILS PERCENT AUTO 70 % (41-73); Platelet Count 101 K/mm3 (150-400); RDW Coefficient Variation 18.2 % (11.7-14.2); RDW Standard Deviation 58.9 fL (35.1-46.3); Red Blood Cell Count 4.74 M/mm3 (3.80-5.20); White Blood Cell Count 4.59 K/mm3 (4.00-11.30)
[2023-08-22 06:08] LABS: International Normalized Ratio 2.63; Prothrombin Time Results 26.1 Sec (9.7-11.5)
[2023-08-22 06:33] LABS: Albumin, Blood 3.4 g/dL (3.4-5.0); Anion Gap 3 mmol/L (6-16); Blood Urea Nitrogen 44 mg/dL (8-24); Bun/Creatinine Ratio 30.3 (12.0-20.0); CO2, Blood 32 mmol/L (21-32); Calcium, Blood 9.4 mg/dL (8.5-10.1); Chloride, Blood 104 mmol/L (98-108); Creatinine, Blood 1.45 mg/dL (0.40-1.00); Glomerular Filtration Rate 40 (60-); Glucose, Blood 85 mg/dL (70-99); Magnesium, Blood 2.5 mg/dL (1.6-2.4); Phosphorus, Blood 3.9 mg/dL (2.5-4.9); Potassium, Blood 3.3 mmol/L (3.5-5.5); Sodium, Blood 139 mmol/L (136-145)
[2023-08-22 07:36] VITALS: BP 131/83
--- NOTE | 2023-08-22 08:00 | NUR ---
Pt laying in bed upon entering room sat up on side of bed for assesment, and medications, a/ox3, voice is a hoarse whisper, states she is doing ok and breathing is ok, no complaints of pain, lungs are clear in [place] a bit dim in bases, resp even and unlabored, has a dry occ nonproductive cough, hrr, valve is loud clicking, 1-2+ edema noted to b/l le, ppp faint, cap refill <3 sec, vs stable, afebrile, piv site is clear and patent, btx4, abd flat soft nontender, voids without diff, skin c/w/d, maew, marilyn, call light in reach.
[2023-08-22] MEDS ORDERED: Potassium Chloride 20 MEQ TabCR PO STA (12:41)
[2023-08-22 16:31] VITALS: BP 121/79
--- NOTE | 2023-08-22 18:29 | NUR ---
pt had a shower today, her daughter helped her, gave her one pain pill, no further needs, or acute changes this shift. call light in reach.
[2023-08-22 19:55] VITALS: BP 105/70
[2023-08-23 04:04] VITALS: BP 93/46
--- NOTE | 2023-08-23 04:26 | NUR ---
SHIFT SUMMARY PT A&OX4 AND ANSWERS QUESTIONS APPROPRIATELY. PT AMBULATED TO THE BR INDEPENDENTLY AND WAS CONTINENT. PT INDEPENDENTLY PERFORMED ORAL HYGEINE. HS MEDICATIONS ADMINISTERED. PT SLEPT MOST OF SHIFT WITH EYES CLOSED AND RESPIRATIONS EVEN AND UNLABORED. PT BP LOW BUT ASYMPTOMATIC, REMAINING VSS. NO COMPLAINTS OF CP OR SOB. NO ACUTE EVENTS AT THIS TIME. PT LEFT IN A POSITION OF SAFETY WITH PROPER FALL PRECAUTIONS IN PLACE AND CALL LIGHT IN REACH.
[2023-08-23 05:01] LABS: Hematocrit 39.7 % (33.0-51.0); Hemoglobin 12.9 g/dL (11.5-16.0)
[2023-08-23 05:14] LABS: International Normalized Ratio 2.81; Prothrombin Time Results 27.8 Sec (9.7-11.5)
[2023-08-23 05:38] LABS: Albumin, Blood 3.1 g/dL (3.4-5.0); Anion Gap 5 mmol/L (6-16); Blood Urea Nitrogen 42 mg/dL (8-24); Bun/Creatinine Ratio 26.6 (12.0-20.0); CO2, Blood 29 mmol/L (21-32); Chloride, Blood 101 mmol/L (98-108); Creatinine, Blood 1.58 mg/dL (0.40-1.00); Glomerular Filtration Rate 36 (60-); Glucose, Blood 96 mg/dL (70-99); Magnesium, Blood 2.5 mg/dL (1.6-2.4); Phosphorus, Blood 4.1 mg/dL (2.5-4.9); Potassium, Blood 3.4 mmol/L (3.5-5.5); Sodium, Blood 135 mmol/L (136-145)
[2023-08-23] MEDS ORDERED: Potassium Chloride 10 Meq Tablet SA PO ONE (06:20)
[2023-08-23 07:21] VITALS: BP 131/82
[2023-08-23] MEDS ORDERED: Bumetanide 1 MG Tab PO SCH (09:00)
[2023-08-23] MEDS ORDERED: Potassium Chloride 10 Meq Tablet SA PO SCH ×2 (09:00)
[2023-08-23 12:30] VITALS: BP 106/65
[2023-08-23 15:57] VITALS: BP 126/79
--- NOTE | 2023-08-23 17:12 | NUR ---
SHIFT SUMMARY PT SATING WELL ON RA. PT COMPLAINING OF SOB WHEN TALKING OR MOVING AROUND. PT AND DAUGHTER VERBALIZED WANTING HOSPICE ON DISCHARGE. THIS WAS RELAYED TO DC PLANNING AND DR. GRAHAM. PT NOW POSSIBLE DC TOMORROW HOME WITH HOSPICE. MEDICATED WITH NORCO ONCE FOR ARTHRITIC PAIN IN HER FINGER JOINT. NO OTHER ACUTE CHANGES IN ASSESSMENT AT THIS TIME. VS REVIEWED. PT AMBULATING TO BATHROM WELL. NO OTHER ACUTE CHANGES IN ASSESSMENT AT THIS TIME. CALL LIGHT IN REACH.
[2023-08-23 19:15] VITALS: BP 122/63
--- NOTE | 2023-08-23 20:44 | NUR ---
[facility] IN TO DROP OF PORTABLE OXYGEN TANK FOR PATIENTS TRANSPORT HOME ON 08/24/23. PATIENT EDUCATED ON USE OF PORTABLE OXYGEN.
[2023-08-24 02:56] VITALS: BP 125/70
[2023-08-24 04:51] LABS: Hematocrit 39.1 % (33.0-51.0); Hemoglobin 12.7 g/dL (11.5-16.0)
[2023-08-24 05:07] LABS: International Normalized Ratio 2.74; Prothrombin Time Results 27.2 Sec (9.7-11.5)
--- NOTE | 2023-08-24 05:25 | NUR ---
SHIFT SUMMARY. PATIENT IS ALERT AND ORIENTED, PLEASANT, AND COOPERATIVE WITH CARE. PATIENT IS INDEPENDENT IN ROOM. PATIENT IS ABLE TO MAKE HER NEEDS KNOWN. PLAN IS FOR PATIENT TO DISCHARGE HOME TO DAUGHTERS ON HOSPICE. PATIENT IS LOOKING FORWARD TO BEING ABLE TO GO HOME. PATIENT HAS PERSONAL OXYGEN THAT WAS DELIVED TO PATIENTS ROOM ON 08/23/23; SEE PREVIOUS NOTE. LUIS IS INDEPENDENT IN ROOM AND WILL CALL FOR ASSISTANCE WHEN NEEDED. PATIENT IS ON A 1000ML FLUID RESTRICTION. NO ACUTE EVENTS NOTED OVER NIGHT. PATIENTS BED IS LOCKED IN THE LOWEST POSITION WITH CALL LIGHT AND WALKER IN REACH. NO S/S OF DISTRESS NOTED AT THIS TIME. CARE IS ONGOING.
[2023-08-24 05:32] LABS: Albumin, Blood 3.4 g/dL (3.4-5.0); Anion Gap 4 mmol/L (6-16); Blood Urea Nitrogen 46 mg/dL (8-24); Bun/Creatinine Ratio 28.9 (12.0-20.0); CO2, Blood 29 mmol/L (21-32); Calcium, Blood 9.3 mg/dL (8.5-10.1); Chloride, Blood 104 mmol/L (98-108); Creatinine, Blood 1.59 mg/dL (0.40-1.00); Glomerular Filtration Rate 35 (60-); Glucose, Blood 89 mg/dL (70-99); Magnesium, Blood 2.5 mg/dL (1.6-2.4); Phosphorus, Blood 4.6 mg/dL (2.5-4.9); Potassium, Blood 3.8 mmol/L (3.5-5.5); Sodium, Blood 137 mmol/L (136-145)
[2023-08-24 07:22] VITALS: BP 130/83
[2023-08-24] MEDS ORDERED: EstradioL 0.5 MG Tablet PO SCH (09:00)
[2023-08-24] MEDS ORDERED: BUME2 PO (11:56)
--- NOTE | 2023-08-24 13:53 | NUR ---
Patient ready for discharge, [facility] at her home. Reviewed discharge instructions with patient & daughter. Patient left unit at 1230.
== END 2023-08-24 12:40 | disposition hospice, home (50) | DRG 291 ==
LOC: ER 11:55 → MEDS 17:07 → ENPENDDIS 08-24 12:06 → MEDS 08-24 12:40
PROVIDERS: Internal Medicine Nephrology; Student in an Organized Health Care Education/Training Program; ADMIT Family Medicine
DX: I13.0 Hypertensive heart and chronic kidney disease with heart failure and stage 1 through stage 4 chronic kidney disease, or unspecified chronic kidney disease (principal); I50.33 Acute on chronic diastolic (congestive) heart failure; E87.1 Hypo-osmolality and hyponatremia; N18.9 Chronic kidney disease, unspecified; D63.1 Anemia in chronic kidney disease; G89.4 Chronic pain syndrome; F32.9 Major depressive disorder, single episode, unspecified; G47.00 Insomnia, unspecified; K21.9 Gastro-esophageal reflux disease without esophagitis; M81.0 Age-related osteoporosis without current pathological fracture; G25.81 Restless legs syndrome; G62.9 Polyneuropathy, unspecified; F41.9 Anxiety disorder, unspecified; E87.6 Hypokalemia; E88.09 Other disorders of plasma-protein metabolism, not elsewhere classified; E83.41 Hypermagnesemia; Z87.820 Personal history of traumatic brain injury; Z86.73 Personal history of transient ischemic attack (TIA), and cerebral infarction without residual deficits; Z95.2 Presence of prosthetic heart valve; Z95.1 Presence of aortocoronary bypass graft; Z79.890 Hormone replacement therapy
CPT/HCPCS: 36415; 71046; 76770; 80053; 80069; 83735; 83880; 84100; 85014; 85018; 85025; 85610; 85730; 93005; 93010; 93306; 96374; 99285-25; A9270; J1940